=== PATIENT | female | born 1960 | race Caucasian/White ===

== ENCOUNTER 2021-01-03 14:35 | Outpatient (REF) | payer BC, SELFPAY ==
[2021-01-03 13:49] LABS: Hemoglobin A1C 8.1 % (<5.7)
[2021-01-03 14:05] LABS: Anion Gap 11.3 mmol/L (3-11); BUN 14 mg/dL (7-18); CO2 25.7 mmol/L (21.0-32.0); CREATININE 0.6 mg/dL (0.55-1.02); Calculated LDL 76 mg/dL (<100); Chloride 105 mmol/L (98-107); Cholesterol 160 mg/dL (<200); Glucose 156 mg/dL (74-106); HDL Cholesterol 46 mg/dL (40-60); Potassium 4.2 mmol/L (3.5-5.1); Sodium 142 mmol/L (136-145); Triglyceride 193 mg/dL (<150)
== END 2021-01-03 14:36 | disposition home or self-care (01) ==
LOC: LBN 14:35
PROVIDERS: PCP Nurse Practitioner Family; Visit Provider Nurse Practitioner Family
DX: E11.9 Type 2 diabetes mellitus without complications (principal)
CPT/HCPCS: 80048; 80061; 83036

== ENCOUNTER 2021-01-15 01:32 | Outpatient (CLI) | payer BC, SELFPAY ==
--- NOTE | 2021-01-15 08:15 | DI.RAD_ITS ---
EXAM: XR KNEE RT 3V AP,LAT,HEMRELINDA CLINICAL HISTORY: Bilateral knee pain,M19.90, OA. TECHNIQUE: 2D digital imaging was performed. COMPARISON: No exams were available for comparison FINDINGS: There is no evidence of fracture but there does appear to be a joint effusion. There is moderate narrowing of the medial compartment. Advanced degenerative changes in the patellof emoral compartment are noted including joint space narrowing and osteophytes on both sides of the ext ensor compartment. Lateral compartment exhibits normal height. No osseous lesions. IMPRESSION: DATA REPOSITORY: RADIATION DOSE DELIVERED:
--- NOTE | 2021-01-15 08:15 | DI.MAMMO_ITS ---
EXAM: MG MAMMO SCREENING CLINICAL HISTORY: screening,Z12.39. TECHNIQUE: Bilateral full field digital CC and MLO mammographic images were obtained with 3D tomosyn thesis and utilizing computer aided detection (CAD). COMPARISON: Prior mammograms dating back to 2011, the most recent being January 2016. FINDINGS: There are no new significant radiograph findings in left breast. In the right breast there is a noncalcified well-defined 4 x 3 millimeter nodule located 4 cm in from the nipple. This most probably benign and is unchanged from at least 2012. there is no significant architectural distortion nor skin thickening-retraction. IMPRESSION: Stable benign findings. No radiographic evidence of malignancy. BI-RADS Category 2 - Benign Findings Breast Density - Category B - Scattered areas of fibroglandular density Breast density Category C or D implies that the patient has dense breast tissue. Dense breast tissue can make it harder to find cancer on a mammogram. Dense breast tissue is also associated with an incr eased risk of breast cancer. This information about the result of the mammogram report was provided to the patient to raise their awareness. Use this report when you speak with the patient about their risks for breast cancer, which includes their family history. At that time, you may recommend additional screening tests (Ultrasoun d or MRI) as these tests may add significant information. A negative radiographic report should not delay biopsy if a dominant or clinically suspicious mass is present. Up to ten percent of cancers are not identified on mammography. A negative report may reinforce clinical impression. Adenosis and dense breasts may obscure an underlying neoplasm. False positive reports average 6 to 10%. Patient will receive a letter notifying them of these results.
--- NOTE | 2021-01-15 08:15 | DI.RAD_ITS ---
EXAM: XR KNEE LT 3V AP,LAT,HERMELINDA CLINICAL HISTORY: Bilateral knee pain,M19.90, OA. TECHNIQUE: 2D digital imaging was performed. COMPARISON: CR XR KNEE RT 3V AP,LAT,HERMELINDA from 01/15/2021 FINDINGS: There is no evidence of fracture. There is a small joint effusion. There is no joint space narrowin g on the standing view but there appears to be an intra-articular bony excrescence at the level of th e articular surface of the lateral femoral condyle, as seen on the AP view. This extends into the la teral compartment. There are no marginal osteophytes. Some degenerative changes also evident in the patellofemoral compartment. No ominous osseous lesions evident. IMPRESSION: DATA REPOSITORY: RADIATION DOSE DELIVERED:
== END 2021-01-15 01:33 ==
LOC: DI 01:33
PROVIDERS: PCP Nurse Practitioner Family; Visit Provider Nurse Practitioner Family
DX: Z12.31 Encounter for screening mammogram for malignant neoplasm of breast (principal); M25.561 Pain in right knee; M25.562 Pain in left knee; M25.461 Effusion, right knee; M25.462 Effusion, left knee
CPT/HCPCS: 73562; 77063; 77067

== ENCOUNTER 2021-03-04 02:57 | Outpatient (CLI) | payer BC, SELFPAY ==
[2021-03-05 12:27] LABS: COVID-19 RT-PCR UVMMC Result Negative (Negative)
== END 2021-03-04 02:58 | disposition home or self-care (01) ==
LOC: LBO 02:57
PROVIDERS: PCP Nurse Practitioner Family; Visit Provider Nurse Practitioner Family
DX: Z20.822 Contact with and (suspected) exposure to COVID-19 (principal)
CPT/HCPCS: U0003

== ENCOUNTER 2021-05-09 11:02 | Day surgery (SDC) | payer BC, SELFPAY ==
[2021-05-09 11:38] VITALS: BP 137/64; PULSE 66; RESP 16; TEMP 36.1; O2SAT 97
[2021-05-09] MEDS: Lactated Ringers 1,000 ML 80 ML IV (12:02)
--- NOTE | 2021-05-09 12:12 | W.ANESPRE ---
General Info Date of Service Date Performed: 05/09/21 Height: 5 ft 1.5 in Weight: 97.1 kg Body Mass Index (BMI): 39.7 Surgical Procedure: Operation Date: 05/09/21 11:20 Proposed Procedures Side Surgeon giovana Doss, DO Meds Allergies and Home Medications Allergies Allergy/AdvReac Type Severity Reaction Status Date / Time ibuprofen Allergy Intermediate swelling Unverified 05/09/21 11:44 aspirin Allergy Unknown swelling/SO Unverified 05/09/21 11:44 B codeine Allergy Unknown Itching Unverified 05/09/21 11:44 cheese Allergy Intermediate swelling Uncoded 05/09/21 11:44 wine Allergy Intermediate throat Uncoded 05/09/21 11:44 swells Environmental Allergy Mild Other (See Uncoded 05/09/21 11:44 Comment) Home Medication Medication Instructions Recorded albuterol sulfate 90 mcg/actuation 2 puff INHALATION Q6H PRN #18 g 01/20/21 aerosol inhaler cetirizine 10 mg tablet 10 mg PO DAILY #90 tab 01/20/21 citalopram 20 mg tablet 20 mg PO DAILY #90 tab 01/20/21 lovastatin 40 mg tablet 40 mg PO HS #90 tab 01/20/21 montelukast 10 mg tablet 10 mg PO DAILY #90 tab 01/20/21 pen needle, diabetic 32 gauge x #200 ea 01/23/21 empagliflozin 25 mg tablet 25 mg PO DAILY #90 tab 02/06/21 insulin degludec 100 unit/mL (3 24 unit SUBCUT QHS #15 ml 02/06/21 mL) subcutaneous pen naproxen 500 mg tablet 500 mg PO BID 04/02/21 metformin 1,000 mg tablet 1,000 mg PO BID #180 tab 04/14/21 bisacodyl 5 mg tablet,delayed 5 mg PO ONCE #4 tab 04/24/21 release polyethylene glycol 3350 17 238 g PO ONCE #238 g 04/24/21 gram/dose oral powder Current Visit Medications: Current Medications Generic Name Dose Route Start Last Admin Trade Name Freq PRN Reason Stop Dose Admin Hyoscyamine Sulfate 0.125 mg 05/09/21 09:04 Hyoscyamine 0.125 Mg Sl/Oral/Chew SL DIRECTED PRN Ringer's Solution 1,000 mls @ 80 mls/hr 05/09/21 06:00 05/09/21 12:02 IV 06/07/21 23:59 80 mls/hr INFUSION SHADE Administration IV Miscellaneous Supplies 1 each 05/09/21 06:00 Iv Access IV 06/07/21 23:59 DIRECTED SHADE Sodium Chloride 0 ml 05/09/21 06:00 Normal Saline Flush 10 Ml Syr IV 06/07/21 23:59 PRN PRN Sodium Chloride 0 ml 05/09/21 06:00 Normal Saline 10 Ml Vial IJ 06/07/21 23:59 DIRECTED PRN Sterile Water 0 ml 05/09/21 06:00 Water,Injection,Sterile 10 Ml Vial IJ 06/07/21 23:59 DIRECTED PRN PFSH Active Problems Active Problems: Problem Status Onset Code Screening for colon cancer Z12.11 Obstructive sleep apnea syndrome G47.33 Type 2 diabetes mellitus E11.9 Hyperlipidemia E78.5 Degenerative joint disease (DJD) of lumbar spine M47.816 Primary osteoarthritis of right knee M17.11 Sigmoid diverticulosis K57.30 Sensorineural hearing loss (SNHL) of both ears H90.3 Medical History Medical History Degenerative joint disease (DJD) of lumbar spine Hyperlipidemia Lipoma (08/08/13) Obstructive sleep apnea syndrome CPAP nightly Sensorineural hearing loss (SNHL) of both ears Sigmoid diverticulosis Type 2 diabetes mellitus Surgical History Surgical History History of bilateral tubal ligation History of section S/P cholecystectomy S/P nasal septoplasty Tobacco Smoking/Tobacco Use Status: Never Passive smoking exposure: Yes Second hand exposure: Yes Alcohol Alcohol Intake: current Alcohol intake frequency: a few times a month Alcohol type: wine and hard liquor Substance Use Substance use: Never Substance use type: does not use Prental History History 2 Para 2 Hx # Term Pregnancies Multiple births Hx # Pregnancies Ectopic pregnancies AB induced Hx Number of Living Children 2 AB spontaneous Vital Signs and Lab Results Vital Signs Most Recent Vital Signs in EMR: Most Recent Vital Signs Temp Pulse Resp BP Pulse Ox 36.1 C L 66 16 137/64 97 05/09/21 11:38 05/09/21 11:38 05/09/21 11:38 05/09/21 11:38 05/09/21 11:38 Point of Care Results Point of Care Results: Finger Stick Blood Glucose 98 05/09/21 12:00 Lab Results Blood Type / Crossmatch: No Data to Display Complete Blood Count: No Data to Display Complete Metabolic Panel: No Data to Display Liver Function Panel: No Data to Display Coagulation Panel: No Data to Display Cardiac Panel: No Data to Display Arterial Blood Gas: No Data to Display Venous Blood Gas: No Data to Display Pancreas Panel: No Data to Display Thyroid Panel: No Data to Display Infectious Disease: No Data to Display Blood Cultures: No Data to Display Toxicology Panel: No Data to Display Anesthesia Assessment and Plan Anesthesia History Personal History: No History of Anesthesia Complications Family History: No Family History of Anesthesia Complications Exercise Tolerance Exercise Tolerance: Metabolic Equivalents>4 Pertinent Negatives Pertinent Negatives: No Symptoms of GERD Cardiac & Pulmonary Exam Cardiac Exam: Normal S1/S2 Heart Sounds Pulmonary Exam: Clear Bilateral Breath Sounds Airway Exam Known Difficult Airway: No Mallampati Class: 2 Mouth Opening: Normal (> 3cm) Thyromental Distance: Less than 3 cm Neck Range of Motion: Full ROM Neck Circumference: Normal Teeth Condition: Removable Dentures/Plates Upper ASA Classification ASA Score: ASA 2 Emergency Case?: No NPO Status NPO Status: NPO Clears >2 hours, Solids >8 hours Anesthesia Plan Resuscitation Status: Full Code Anesthesia Technique: General Anesthesia Airway Planned: Natural Airway Monitors Used: Standard Monitors
[2021-05-09 12:17] VITALS: BMI 39.7
--- NOTE | 2021-05-09 13:50 | BOWEL_PTH ---
PATIENT: Eileen Simpson LOC: [facility] U#:[id number] AGE/SX: 61/F ROOM: RE05/09/[address]: Jaleesa Doss : 1960 BED: DIS: 05/09/2021 SPEC #: [id number] RECD: 05/09/21 17:32 STATUS: JENA RECristofer #: [id number] GEORGETTE: 05/09/21 13:[address]: Jaleesa Doss DEPT: Surgical Specimen RECD BY: Nicky Hicks ENTERED: 05/09/21 17:33 SP TYPE: Bowel OTHR DR: Vee Norman, BENJIE Tissues: 1 - BIOPSY BOWEL 2 - BIOPSY BOWEL Procedures: GROSS AND MICRO LEVEL 4 Comments: [id number]
--- NOTE | 2021-05-09 14:08 | W.COLOREPORT ---
Date of service: 05/09/21 Time of Service: 14:08 Colonoscopy Report Date of procedure: 05/09/21 Pre-op diagnosis general: screen Post-op diagnosis procedure note: other (diverticula ) Surgeon: Jaleesa Doss Anesthesia Type: General:No Airway Estimated blood loss (mL): 0 Pathology: other Complications: None Disposition: same day Prep: Miralax/Dulcolax Retraction Time: 9 Procedure Description: After informed consent was obtained the patient was taken to the procedure room and placed in a left decubitous position. Monitors were applied and a time out was done. The patients name, date of , procedure, allergies to medications and metal in their body was reviewed. The patient was then sedated. Once sedated and comfortable a rectal exam was done. External exam was normal. Internal exam revealed a normal sphincter tone and no palpable masses. The scope was then introduced and retrofelexed. no internal hemorrhoids were identified. The scope was then advanced to the cecum w/out difficulty. The TI and appendiceal orifice were identified. The prep was good. The scope was then slowly retracted over 9 minutes back into the rectum. There are no polyps or AVMs visualized today. She does have mild diverticula confined to the sigmoid colon. There is no signs of bleeding or infection. Biopsies taken at 90 cm and in the rectum-because of the problems she was having earlier this winter with diarrhea. The scope was removed and the patient was woken up and taken back to Same day surgery in stable condition. The patient tolerated the procedure well and there were no immediate complications. Follow up: The patient should follow up in 10 years unless they develop changes in bowel habits or other new gastrointestinal complaints.
--- NOTE | 2021-05-09 14:11 | PDOC.DSDIS_ITS ---
Discharge Plan Disposition Patient Disposition: HOME Condition: Good Discharge Details Reason For Visit: colon scope Attending Provider: Jaleesa Doss Primary Care Provider: Vee Norman Home Meds and New Rx's Prescriptions: Continued Tresiba FlexTouch U-100 100 unit/mL (3 mL) insulin pen 24 unit subcut QHS Qty: 15 RF: 4 Jardiance 25 mg tablet 25 mg PO DAILY Qty: 90 RF: 4 citalopram [Celexa] 20 mg tablet 20 mg PO DAILY Qty: 90 RF: 4 lovastatin 40 mg tablet 40 mg PO HS Qty: 90 RF: 4 montelukast [Singulair] 10 mg tablet 10 mg PO DAILY Qty: 90 RF: 4 cetirizine [Zyrtec] 10 mg tablet 10 mg PO DAILY Qty: 90 RF: 4 albuterol sulfate [Ventolin HFA] 90 mcg/actuation HFA aerosol inhaler 2 puff Inhalation Q6H PRN (Reason: shortness of breath or wheezing) Qty: 18 RF: 4 (DME) pen needle, diabetic [BD Ultra-Fine Margo Pen Needle] 32 gauge x 5/32 needle See Rx Instructions .ROUTE .MEDSUPPLY Qty: 200 RF: 4 naproxen 500 mg tablet 500 mg PO BID RF: 0 metformin 1,000 mg tablet 1,000 mg PO BID Qty: 180 RF: 4 Discontinued bisacodyl [Dulcolax (bisacodyl)] 5 mg tablet,delayed release (DR/EC) 5 mg PO ONCE Qty: 4 RF: 0 polyethylene glycol 3350 17 gram/dose powder 238 g PO ONCE Qty: 238 RF: 0 Discharge Instructions Additional Instructions: DSU Colonoscopy Post- Op Instructions Instructions for Everyone who is given Anesthesia: For your safety, please do the following for the next twenty-four (24) hours: *Do Not operate a motor vehicle (car, truck, motorcycle, etc.) *Do Not drink alcoholic beverages or use any recreational drugs for the first 24 hours or while taking pain medications. The medications in your body may have a reaction that can be dangerous. *Do Not make any important decisions or sign any important papers. Findings:diverticula- minor otherwise nromal I did do biopsy's today Follow up: Repeat colonoscopy in 10 years time, if you are still healthy for anesthesia. I did do routine biopsies of the colon. We will send a letter in 3 to 4 weeks time with the results of the biopsies. Otherwise the colon looked healthy and normal. 1. No lifting over 20 pounds or strenuous activity for the first 24 hours after your procedure. After 24 hours there are no restrictions on your activity but you may feel fatigued for a few days. 2. After you arrive home you may have a light meal and return to your normal diet as you can tolerate it without feeling sick to your stomach. 3. You may have a bloated, gaseous feeling in your belly (abdomen) after a colonoscopy. Passing gas and belching will help. Walking or lying down on your left side with your knees flexed may relieve the discomfort. Call the office at [phone] (Office) or [phone] (Hospital) right away if you notice any of the following: a.Vomiting of blood or ?coffee ground stools?. b.Rectal bleeding 1Tbsp, blood clots or continuous bleeding. c.Severe belly (abdominal) pain. d.A hard distended belly (abdomen) and an inability to pass gas. 4. Please don?t expect to have a normal BM (bowel movement) for 2-3 days after your procedure. 5. If there are questions regarding the findings of your procedure, please contact your doctor 6. If you are unable to contact your doctor with a problem, contact the hospital at [phone]. 7. Continue all your regular medications unless directed otherwise. I understand the above instructions and have no questions. Signature of Patient or Adult Escort Name of Responsible Adult Escort Signature of Nurse Date/Time Activity:: see above Diet:: see above Discharge Orders Discharge Orders: Discharge Order (Routine); Ordered 05/09/21 Ordered By: Jaleesa Doss DS: Diagnosis Discharge Diagnosis (1) Diverticula of colon: Status: Acute
--- NOTE | 2021-05-09 14:16 | W.ANESPOSTOP ---
Postoperative Evaluation Date, Time and Location Date Performed: 05/09/21 Time Performed: 14:16 Patient Location: Day Surgery Unit Vital Signs Most Recent Imported Vital Signs: Most Recent Vital Signs Temp Pulse Resp BP Pulse Ox 36.1 C L 66 16 137/64 97 05/09/21 11:38 05/09/21 11:38 05/09/21 11:38 05/09/21 11:38 05/09/21 11:38 Most Recent Manually Entered Vital Signs: Adult Blood Pressure: 87/37 Heart Rate: 60 Respirations: 16 Oxygen Saturation (%): 96 Temperature (C): 36.5 C Pain Score (0-10 Scale): 0 Pain Score Most Recent Pain Score: Most Recent Pain Score Pain Level 0 05/09/21 11:38 Assessment Mental Status: Awake (Alert & Oriented to Patient Baseline) Airway and Respiratory Function: Patent airway with normal (patient baseline) respiratory exam Cardiovascular Function: Hemodynamically Stable Hydration Status: Adequately Hydrated Nausea & Vomiting: No Nausea or Vomiting Pain: Pt. Denies Any Pain Peripheral Nerve Block: Patient did not receive a nerve block
[2021-05-09 14:17] VITALS: BP 87/37; PULSE 60; RESP 18; TEMP 36.5; O2SAT 96
[2021-05-09 14:18] VITALS: BP 87/37; PULSE 60; RESP 16; TEMPC 36.5; O2SAT 96
[2021-05-09 14:38] VITALS: BP 108/62; PULSE 75; RESP 16; TEMP 36.1; O2SAT 98
== END 2021-05-09 15:12 | disposition home or self-care (01) ==
PROVIDERS: PCP Nurse Practitioner Family; Visit Provider Surgery
PROC: 0DJD8ZZ Inspection of Lower Intestinal Tract, Via Natural or Artificial Opening Endoscopic (ICD-10-PCS; CPT 45378; principal; 2021-05-09 11:15)
DX: R19.7 Diarrhea, unspecified (principal); K57.30 Diverticulosis of large intestine without perforation or abscess without bleeding; G47.33 Obstructive sleep apnea (adult) (pediatric); E11.9 Type 2 diabetes mellitus without complications
CPT/HCPCS: 45380; 88305; J2001

== ENCOUNTER 2021-05-15 03:44 | Outpatient (CLI) | payer BC, SELFPAY ==
[2021-05-15 16:46] LABS: Anion Gap 13.2 mmol/L (3-11); BUN 16 mg/dL (7-18); CO2 23.8 mmol/L (21.0-32.0); CREATININE 0.7 mg/dL (0.55-1.02); Calcium 9.7 mg/dL (8.5-10.1); Chloride 107 mmol/L (98-107); Glucose 197 mg/dL (74-106); Potassium 3.9 mmol/L (3.5-5.1); Sodium 144 mmol/L (136-145)
== END 2021-05-15 03:45 | disposition home or self-care (01) ==
LOC: LBO 03:44
PROVIDERS: PCP Nurse Practitioner Family; Visit Provider Nurse Practitioner Family
DX: E11.9 Type 2 diabetes mellitus without complications (principal)
CPT/HCPCS: 36415; 80048

== ENCOUNTER 2021-09-01 01:30 | Outpatient (CLI) | payer BC, SELFPAY ==
[2021-09-01 11:00] LABS: Source Nasal/Nares
[2021-09-01 15:19] LABS: COVID-19 PCR Negative (Negative)
== END 2021-09-01 01:31 | disposition home or self-care (01) ==
LOC: LBO 01:30
PROVIDERS: PCP Nurse Practitioner Family; Visit Provider Student in an Organized Health Care Education/Training Program
DX: Z20.822 Contact with and (suspected) exposure to COVID-19 (principal); Z01.818 Encounter for other preprocedural examination
CPT/HCPCS: 87635

== ENCOUNTER 2021-09-03 11:50 | Day surgery (SDC) | payer BC, SELFPAY ==
[2021-09-03] VITALS (9 sets, daily range): BP systolic 93–121; BP diastolic 51–74; PULSE 54–66; RESP 7–18; TEMP 36.1–36.6; O2SAT 94–98; BMI 40.8
--- NOTE | 2021-09-03 07:40 | W.ANESPRE ---
General Info Date of Service Date Performed: 09/03/21 Height: 5 ft 1.5 in Weight: 99.79 kg Body Mass Index (BMI): 40.8 Surgical Procedure: Operation Date: 09/03/21 13:55 Proposed Procedures Side Surgeon p Knee Arthroscopy (R) w/partial medial meniscectomy Right Mitch Pak MD Meds Allergies and Home Medications Allergies Allergy/AdvReac Type Severity Reaction Status Date / Time ibuprofen Allergy Intermediate swelling Unverified 09/03/21 12:15 aspirin Allergy Unknown swelling/SO Unverified 09/03/21 12:15 B codeine Allergy Unknown Itching Unverified 09/03/21 12:15 cheese Allergy Intermediate swelling Uncoded 09/03/21 12:15 wine Allergy Intermediate throat Uncoded 09/03/21 12:15 swells Environmental Allergy Mild Other (See Uncoded 09/03/21 12:15 Comment) Home Medication Medication Instructions Recorded albuterol sulfate 90 mcg/actuation 2 puff INHALATION Q6H PRN #18 g 01/20/21 aerosol inhaler cetirizine 10 mg tablet 10 mg PO DAILY #90 tab 01/20/21 citalopram 20 mg tablet 20 mg PO DAILY #90 tab 01/20/21 lovastatin 40 mg tablet 40 mg PO HS #90 tab 01/20/21 montelukast 10 mg tablet 10 mg PO DAILY #90 tab 01/20/21 pen needle, diabetic 32 gauge x #200 ea 01/23/21 empagliflozin 25 mg tablet 25 mg PO DAILY #90 tab 02/06/21 naproxen 500 mg tablet 500 mg PO BID 04/02/21 metformin 1,000 mg tablet 1,000 mg PO BID #180 tab 04/14/21 insulin degludec 100 unit/mL (3 22 unit SUBCUT QHS #15 ml 05/16/21 mL) subcutaneous pen acetaminophen 1,000 mg PO Q8H PRN PRN #90 cap 09/03/21 hydrocodone-acetaminophen 1 tab PO Q6H PRN #6 tab 09/03/21 Current Visit Medications: Current Medications Generic Name Dose Route Start Last Admin Trade Name Freq PRN Reason Stop Dose Admin Acetaminophen 1,000 mg 09/03/21 06:00 Acetaminophen 500 Mg Tab PO PREOP SHADE Ringer's Solution 1,000 mls @ 80 mls/hr 09/03/21 06:00 IV 09/21/21 23:59 INFUSION SHADE Cefazolin Sodium/Dextrose 2 gm in 50 mls @ 100 mls/hr 09/03/21 06:00 Ancef Duplex IVPB 09/21/21 23:59 PREOP SHADE IV Miscellaneous Supplies 1 each 09/03/21 06:00 Iv Access IV 09/21/21 23:59 DIRECTED SHADE Sodium Chloride 0 ml 09/03/21 06:00 Normal Saline Flush 10 Ml Syr IV 09/21/21 23:59 PRN PRN Sodium Chloride 0 ml 09/03/21 06:00 Normal Saline 10 Ml Vial IJ 09/21/21 23:59 DIRECTED PRN Sterile Water 0 ml 09/03/21 06:00 Water,Injection,Sterile 10 Ml Vial IJ 09/21/21 23:59 DIRECTED PRN PFSH Active Problems Active Problems: Problem Status Onset Code Tear of medial meniscus of right knee S83.241A Normal colonoscopy ~04/2021 Internal derangement of right knee M23.91 Diverticula of colon K57.30 Obstructive sleep apnea syndrome G47.33 Type 2 diabetes mellitus E11.9 Hyperlipidemia E78.5 Degenerative joint disease (DJD) of lumbar spine M47.816 Primary osteoarthritis of right knee M17.11 Sigmoid diverticulosis K57.30 Sensorineural hearing loss (SNHL) of both ears H90.3 Medical History Medical History (Updated 09/03/21 @ 12:45 by ANITRA Matthews) Degenerative joint disease (DJD) of lumbar spine Hyperlipidemia Lipoma (08/08/13) Obstructive sleep apnea syndrome CPAP nightly Sensorineural hearing loss (SNHL) of both ears Sigmoid diverticulosis Type 2 diabetes mellitus Surgical History Surgical History (Updated 09/03/21 @ 12:45 by ANITRA Matthews) History of bilateral tubal ligation History of section History of colonoscopy (~05/09/21) S/P cholecystectomy S/P nasal septoplasty Tear of medial meniscus of right knee S/P R knee arthroscopy: 09/03/2021 Tobacco Smoking/Tobacco Use Status: Never Passive smoking exposure: Yes Second hand exposure: Yes Alcohol Alcohol Intake: current Alcohol intake frequency: a few times a month Alcohol type: wine and hard liquor Substance Use Substance use: Never Substance use type: does not use Prental History History 2 Para 2 Hx # Term Pregnancies Multiple births Hx # Pregnancies Ectopic pregnancies AB induced Hx Number of Living Children 2 AB spontaneous Vital Signs and Lab Results Point of Care Results Point of Care Results: Finger Stick Blood Glucose 104 09/03/21 12:04 Lab Results Blood Type / Crossmatch: No Data to Display Complete Blood Count: No Data to Display Complete Metabolic Panel: No Data to Display Liver Function Panel: No Data to Display Coagulation Panel: No Data to Display Cardiac Panel: No Data to Display Arterial Blood Gas: No Data to Display Venous Blood Gas: No Data to Display Pancreas Panel: No Data to Display Thyroid Panel: No Data to Display Infectious Disease: Coronavirus (COVID-19)(PCR) Negative (Negative) 09/01/21 08:38 09/01/21 Coronavirus 2019 Source Nasal/Nares 09/01/21 08:38 09/01/21 Blood Cultures: No Data to Display Toxicology Panel: No Data to Display Anesthesia Assessment and Plan Anesthesia History Personal History: No History of Anesthesia Complications Family History: No Family History of Anesthesia Complications Exercise Tolerance Exercise Tolerance: Metabolic Equivalents>4 Pertinent Negatives Pertinent Negatives: No Symptoms of GERD, No Major Cardiovascular Symptoms or Complaints, No Major Pulmonary Symptoms or Complaints and No History of CVA/TIA Cardiac & Pulmonary Exam Cardiac Exam: Normal S1/S2 Heart Sounds Pulmonary Exam: Clear Bilateral Breath Sounds Airway Exam Known Difficult Airway: No Mallampati Class: 2 Mouth Opening: Normal (> 3cm) Thyromental Distance: Less than 3 cm Neck Range of Motion: Full ROM Neck Circumference: Normal Teeth Condition: Removable Dentures/Plates Upper ASA Classification ASA Score: ASA 3 Emergency Case?: No NPO Status NPO Status: NPO Clears >2 hours, Solids >8 hours Anesthesia Plan Resuscitation Status: Full Code Anesthesia Technique: General Anesthesia Airway Planned: LMA Monitors Used: Standard Monitors Preoperative Comments:: 61 yo female for knee arthroscopy. Sig PMHx: BMI 40, JIMENEZ/CPAP, DM2 (degludec/metformin/jardiance last a1c 7.7 03/2021), asthma (singulair/albuterol).
[2021-09-03] MEDS: Acetaminophen 500 MG TAB 1000 MG PO (12:36)
--- NOTE | 2021-09-03 12:44 | W.PM.DSUDISC ---
Discharge Plan Disposition Patient Disposition: HOME Condition: Good Discharge Details Reason For Visit: R knee arthroscopy Attending Provider: Mitch Pak Primary Care Provider: Vee Norman Home Meds and New Rx's Prescriptions: New hydrocodone-acetaminophen 5-325 mg tablet 1 tab PO Q6H PRN (Reason: pain) Qty: 6 RF: 0 acetaminophen 500 mg capsule 1,000 mg PO Q8H PRN PRNQty: 90 RF: 0 Continued Jardiance 25 mg tablet 25 mg PO DAILY Qty: 90 RF: 4 Tresiba FlexTouch U-100 100 unit/mL (3 mL) insulin pen 22 unit subcut QHS Qty: 15 RF: 4 citalopram [Celexa] 20 mg tablet 20 mg PO DAILY Qty: 90 RF: 4 lovastatin 40 mg tablet 40 mg PO HS Qty: 90 RF: 4 montelukast [Singulair] 10 mg tablet 10 mg PO DAILY Qty: 90 RF: 4 cetirizine [Zyrtec] 10 mg tablet 10 mg PO DAILY Qty: 90 RF: 4 albuterol sulfate [Ventolin HFA] 90 mcg/actuation HFA aerosol inhaler 2 puff Inhalation Q6H PRN (Reason: shortness of breath or wheezing) Qty: 18 RF: 4 (DME) pen needle, diabetic [BD Ultra-Fine Margo Pen Needle] 32 gauge x 5/32 needle See Rx Instructions .ROUTE .MEDSUPPLY Qty: 200 RF: 4 naproxen 500 mg tablet 500 mg PO BID RF: 0 metformin 1,000 mg tablet 1,000 mg PO BID Qty: 180 RF: 4 Discontinued acetaminophen [Tylenol Ex Str Arthritis Pain] 500 mg Tablet 1,000 mg PO Q6H PRNRF: 0 Discharge Instructions Stand Alone Forms: [facility] Knee Arthroscopy Referrals: Mitch Pak MD [ [facility] STAFF PHYSICIAN] - Equipment/Supplies: Partial Weight Bearing Crutches Activity:: Activity as Tolerated Remove Dressings/Wound Care:: 72 hours Shower/Bathe:: 72 hours Diet:: As Tolerated Discharge Orders Discharge Orders: Discharge Order (Routine); Ordered 09/03/21 Ordered By: Charlie Nieves DS: Diagnosis Discharge Diagnosis (1) Tear of medial meniscus of right knee: Status: Acute
[2021-09-03] MEDS: Lactated Ringers 1,000 ML 80 ML IV (13:02)
[2021-09-03] MEDS: ceFAZolin 2 GM/50 ML BAG IVPB (13:55)
[2021-09-03] MEDS: Bupivacaine 0.5% Pres-Free 30 ML VIAL (14:15)
[2021-09-03] MEDS: fentaNYL 100 MCG/2 ML VIAL IVP ×3 (14:41→15:03)
--- NOTE | 2021-09-03 16:07 | W.ANESPOSTOP ---
Postoperative Evaluation Date, Time and Location Date Performed: 09/03/21 Time Performed: 16:07 Patient Location: Day Surgery Unit Vital Signs Most Recent Imported Vital Signs: Most Recent Vital Signs Temp Pulse Resp BP Pulse Ox 36.1 C L 61 16 96/60 L 96 09/03/21 15:56 09/03/21 15:56 09/03/21 15:56 09/03/21 15:56 09/03/21 15:56 Pain Score Most Recent Pain Score: Most Recent Pain Score Pain Level 2 09/03/21 15:56 Assessment Mental Status: Awake (Alert & Oriented to Patient Baseline) Airway and Respiratory Function: Patent airway with normal (patient baseline) respiratory exam Cardiovascular Function: Hemodynamically Stable Hydration Status: Adequately Hydrated Nausea & Vomiting: No Nausea or Vomiting Pain: Pain is tolerable per patient Peripheral Nerve Block: Regional nerve block not resolved at time of post operative discharge
--- NOTE | 2021-09-04 07:57 | ROE_ITS ---
Date of service: 09/03/21 Time of Service: 14:43 Operative Note Operative Note DATE OF PROCEDURE: 09/03/21 PRE-OP DIAGNOSIS: Right Medial Meniscus Tear POST-OP DIAGNOSIS: same Right Medial Femur and Tibia Chondromalacia, Medial and Lateral Osteophytes PROCEDURE: Right arthroscopic partial medial meniscectomy, removal of impinging osteophyte posteriorly in the medial compartment SURGEON: Mitch Pak ANESTHESIA TYPE: General LMA/ETT Refer to Anesthesia Record ESTIMATED BLOOD LOSS: 0 PATHOLOGY: none sent TOURNIQUET TIME: 0 COMPLICATIONS: None Patient was transported to: PACU Patient's condition: stable Indications: I have seen Eileen in clinic for symptoms of a meniscus tear with chondromalacia. This was confirmed based on MRI and exam findings. Nonoperative measures were exhausted but disability and pain persisted. I discussed knee arthroscopy with meniscal intervention with the patient. I reviewed the risks of the procedure to include, but not limited to, bleeding, infection, pain, stiffness, damage to nerves or vessels, recurrence, blood clot. Despite these risks, the patient elected to proceed. Findings: A diagnostic arthroscopy was performed with the following findings: Suprapatellar Pouch: Mild inflammatory changes, No loose bodies Medial Compartment: Complex medial meniscal tear with involvement of the root and a large radial tear just medial to the root with an impinging osteophyte in this defect, focal grade IV chondromalacia of the central tibia, grade III chondromalacia over the posterior aspect of the tibia, diffuse grade II/III chondromalacia of the medial femur, No loose bodies Notch: ACL and PCL were intact Lateral Compartment: No meniscal tear, Intact meniscal root, No significant chondromalacia or signs of arthritis, No loose bodies Patellofemoral Compartment: Grade I chondromalacia of the patella and grade II chondromalacia of the trochlea, No apparent patellar maltracking Procedure Description: Eileen was greeted in the preoperative holding area where the correct side was identified and marked. The consent was reviewed with the patient and signed. The history and physical was updated. All questions were answered. Eileen was taken back to the operating room. The patient was placed into the supine position on the operating room table. A nonsterile tourniquet was placed high onto the leg but not used. All bony prominences were well padded. Prophylactic antibiotics in the form of cefazolin were administered. The right leg was then prepped with Chloraprep and draped in a standard fashion with stockinette and extremity drape. A timeout to confirm correct identity, side and site, procedure, allergies, anesthesia, and medical concerns was performed. The leg was placed into a pneumatic leg cheney, [id number]. A standard lateral portal was made at the lateral border of the patella tendon in line with the inferior pole of the patella, soft spot. The skin and deep tissue was incised sharply and the blunt trochar was inserted atraumatically. A diagnostic arthroscopy was performed and the findings are listed above. The suprapatellar pouch had mild inflammatory change. The patellofemoral articulation showed some grade I chondromalacia of the patella and grade II chondromalacia of the trochlea as well as no maltracking. The lateral gutter had no loose bodies but there was a peripheral osteophyte and the medial gutter had no loose bodies but once again peripheral osteophyte present. The knee was brought into some valgus stress in extension to open the medial compartment. A medial portal was made, localized by a spinal needle. The portal was created with an #11 blade through skin and capsule under direct visualization avoiding any meniscal injury. A probe was then inserted into the medial compartment. The medial compartment was fully inspected. The chondral surface of the tibia showed a small area of focal grade IV chondromalacia in the central portion of the tibia a few millimeters in diameter and the surface of the femur showed slightly more diffuse grade III chondromalacia. The medial meniscus had a complex tear with a radial component just medial to the posterior root disconnecting the remainder of the medial meniscus from the root attack. There was complex tearing through the lateral edge of this tear component with both horizontal and vertical components. Additionally, there was a prominent osteophyte at this level of the posterior medial meniscus in the gap of the meniscus which seem to be impinging with flexion. After evaluation, the meniscus was debrided down to a stable base u sing a series of biters and arthroscopic jamey. It was probed afterwards to confirm that the tear had been removed and the meniscus was stable. I also used the arthroscopic biters to remove the osteophyte from the posterior rim of the medial tibial plateau. The notch was then inspected which showed an intact ACL and an intact PCL. The leg was then brought into a figure of 4 position. The lateral compartment was fully inspected with the arthroscope and a probe. The chondral surface of the lateral femur showed no significant chondromalacia. The chondral surface of the lateral tibia showed no significant chondromalacia. The lateral meniscus had no meniscal tear. The arthroscope was brought back into the suprapatellar pouch and the leg was in full extension. The knee was thoroughly irrigated with the arthroscopic fluid on high flow and pressure. Inflow was stopped and excess fluid was removed. The wounds were closed with 4-0 Nylon. They were dressed with Xeroform, 4x4 gauze, ABD pad, Kerlix and an SARMAD wrap. A cryo-cuff was applied. The patient tolerated the procedure well and was returned to the Same Day Surgery area in a stable condition suffering no known complication.
== END 2021-09-03 16:44 | disposition home or self-care (01) ==
PROVIDERS: PCP Nurse Practitioner Family; Visit Provider Student in an Organized Health Care Education/Training Program
PROC: (CPT 29870; principal; 2021-09-03 13:45)
DX: M23.303 Other meniscus derangements, unspecified medial meniscus, right knee (principal); M94.261 Chondromalacia, right knee; M25.761 Osteophyte, right knee; G47.33 Obstructive sleep apnea (adult) (pediatric); E11.9 Type 2 diabetes mellitus without complications
CPT/HCPCS: 29881; J0690; J1100; J2001; J2405; J2704; J3010

== ENCOUNTER 2021-09-23 02:20 | Outpatient (CLI) | payer BC, SELFPAY ==
[2021-09-23 09:08] LABS: Hemoglobin A1C 6.9 % (<5.7)
[2021-09-23 09:31] LABS: COMMENT (LAB VIEW ONLY) 85.18 mg/dL; Microalb ug/mg Crea 9.7 ug/mg Cr
[2021-09-23 09:57] LABS: Anion Gap 10.4 mmol/L (3-11); BUN 14 mg/dL (7-18); CO2 26.6 mmol/L (21.0-32.0); CREATININE 0.6 mg/dL (0.55-1.02); Calcium 9.4 mg/dL (8.5-10.1); Chloride 105 mmol/L (98-107); Glucose 124 mg/dL (74-106); Potassium 4.2 mmol/L (3.5-5.1); Sodium 142 mmol/L (136-145)
== END 2021-09-23 02:21 | disposition home or self-care (01) ==
LOC: LBO 02:20
PROVIDERS: PCP Nurse Practitioner Family; Visit Provider Family Medicine
DX: E11.9 Type 2 diabetes mellitus without complications (principal)
CPT/HCPCS: 36415; 80048; 82043; 82570; 83036

== ENCOUNTER 2022-01-05 00:33 | Outpatient (CLI) | payer BC, SELFPAY ==
--- NOTE | 2022-01-05 06:30 | DI.MRI_ITS ---
Exam(s) MR LUMBAR SPINE WO EXAM: MR LUMBAR SPINE WO CLINICAL HISTORY: low back pain with radiculopathy to LLE,m54.16. TECHNIQUE: Multiplanar multisequence MRI of the Lumbar spine was performed. COMPARISON: There are no plain films of the lumbar spine available time this MRI interpretation FINDINGS: Five lumbar vertebrae are presumed. Conus medullaris is at lower L1 level. There is no evidence of conus mass nor subjacent clumping of intrathecal nerve roots to suggest arachnoiditis. The distal thecal sac is at L5-S1 level. No evide nce of Tarlov intra sacral CIS nor other significant findings within the sacral canal. Bones:There are no fractures nor ominous osseous lesions in the lumbar vertebral bodies and visualize d sacrum. With respect to the individual levels... T12-L1: Unremarkable L1-2: Normal disc height and signal. No disc herniation nor central canal stenosis.No foraminal steno sis L2-3: Normal disc height. No disc herniation nor central canal stenosis.No foraminal stenosis.No face t arthropathy. L3-4: Normal disc height. There is some annular bulging posteriorly which results in mild central sp inal canal stenosis. No evidence of significant foraminal stenosis. Mild degenerative changes in th e facet joints. L4-5: Normal disc height. There is mild anterolisthesis of L4 upon L5 due to severe facet arthropath y. Although there is no disc herniation at this level there is moderate-severe central spinal canal stenosis due to the listhesis. There is no significant foraminal stenosis evident at this level, thi s related to the fact that there is preserved disc height at this level. L5-S1: This level exhibits mild disc height loss. No listhesis. There is diffuse annular bulging ev ident at this level. There is a posterolateral left disc herniation which extends posteriorly 7 mill imeters, is approximately 8 millimeters wide, and descends for distance of approximately 12 millimete rs behind the left side of the S1 vertebral body. Contacts the exiting nerve root at this level. Th ere is mild central spinal canal stenosis at this level. There is significant narrowing of the exiti ng left neural foramen at this level due to more advanced disc height loss on the left side of this d isc space as well asdegenerative change in the facet joints. No foraminal stenosis on the right side at this level. Facet joint arthropathy is more severe on the left side at this level Soft tissues: paraspinal soft tissues appear unremarkable. IMPRESSION: 1. Findings at the lower 3 levels as described above. There is moderate-severe central canal stenosi s at L4-5 level related to degenerative anterolisthesis of L4 upon L5. No significant foraminal sten osis evident at this level. 2. L5-S1 slightly left of center disc herniation descends for distance of 12 millimeters behind the l eft side of S1. Also severe left-sided foraminal stenosis at this level. No right-sided foraminal s tenosis at this level. 3. Other individual findings as described individually above. DATA REPOSITORY:
== END 2022-01-05 00:53 ==
PROVIDERS: PCP Nurse Practitioner Family; Visit Provider Nurse Practitioner Family
DX: M54.16 Radiculopathy, lumbar region (principal); M51.17 Intervertebral disc disorders with radiculopathy, lumbosacral region; M47.27 Other spondylosis with radiculopathy, lumbosacral region; M79.605 Pain in left leg
CPT/HCPCS: 72148

== ENCOUNTER 2022-02-12 08:47 | Outpatient (CLI) | payer BC, SELFPAY ==
--- NOTE | 2022-02-12 09:00 | RT.EKG_ITS ---
APPROVED REPORT Exam: Resting ECG Reason for Exam: pre op evaluation Patient Location: O HR:69 bpm ECG Measurements Heart Rate 69 AXIS ME 164 P 76 QRSd 90 QRS -54 QT 391 T 43 QTc 419 Conclusion Sinus rhythm...normal P axis, V-rate 60- 99 Left anterior fascicular block...axis(240,-40), init forces inf Poor R wave progression
== END 2022-02-12 08:48 | disposition home or self-care (01) ==
PROVIDERS: PCP Nurse Practitioner Family; Visit Provider Nurse Practitioner Family
DX: Z01.818 Encounter for other preprocedural examination (principal); M54.16 Radiculopathy, lumbar region
CPT/HCPCS: 93010

== ENCOUNTER 2022-02-18 02:10 | Outpatient (CLI) | payer BC, SELFPAY ==
--- NOTE | 2022-02-18 07:45 | DI.MAMMO_ITS ---
Exam(s) MAMMO SCREENING EXAM: MAMMO SCREENING CLINICAL HISTORY: screening Z12.39 FOR BREAST CANCER TECHNIQUE: Mammograms were interpreted according to the usual protocol including computer analysis w [employer] CAD system, tomosynthesis and C-view imaging. COMPARISON: FINDINGS: The breasts are of moderate density with fairly symmetrical distribution of fibroglandular tissue. N o dominant mass or clumped microcalcification is identified in either breast. The current examinatio n is compared with previous examinations including December 2020 and there has been no gross interval change in appearance in comparison with the prior studies. IMPRESSION: No specific evidence of malignancy at this time. Routine screening examinations are suggested at yea rly intervals in this age group according to the ACS ACR guidelines. BI-RADS Category 1 - Negative Breast Density - Category B - Scattered areas of fibroglandular density
== END 2022-02-18 02:30 ==
PROVIDERS: PCP Nurse Practitioner Family; Visit Provider Nurse Practitioner Family
DX: Z12.31 Encounter for screening mammogram for malignant neoplasm of breast (principal)
CPT/HCPCS: 77063; 77067

== ENCOUNTER 2022-02-20 02:27 | Outpatient (CLI) | payer BC, SELFPAY ==
[2022-02-20 10:32] LABS: Abs Immature Grans 0.01 10^3/uL (0.0-0.06); Absolute Basophil Count 0.04 10^3/uL (0.0-0.2); Absolute Eosinophil Count 0.09 10^3/uL (0.0-0.7); Absolute Lymphocyte Count 1.97 10^3/uL (1.2-3.4); Absolute Monocyte Count 0.33 10^3/uL (0.1-0.8); Absolute Neutrophil Count 2.28 10^3/uL (1.2-6.7); Basophils % 0.8; Eosinophils % 1.9; HCT 42.7 % (36.0-46.0); HGB 14.1 g/dL (11.2-15.7); Immature Grans % 0.2; Lymphocytes % 41.7; MCH 31.6 pg (27.0-33.0); MCV 95.7 fL (80-95); Neutrophils % 48.4; Nucleated RBC 0 %; Platelet Count 281 10^3/uL (130-400); RBC 4.46 10^6/uL (3.93-5.22); RDW-SD 42.5 fL; WBC 4.72 10^3/uL (4.4-10.8)
[2022-02-20 10:53] LABS: Hemoglobin A1C 6.5 % (<5.7)
[2022-02-20 11:09] LABS: ALT 23 U/L (14-59); AST 6 U/L (15-37); Albumin 4.1 g/dL (3.4-5.0); Alkaline Phosphatase 61 U/L (46-116); Anion Gap 14.4 mmol/L (3-11); BUN 15 mg/dL (7-18); Bilirubin, Total 0.8 mg/dL (0.2-1.0); CO2 22.6 mmol/L (21.0-32.0); CREATININE 0.7 mg/dL (0.55-1.02); Calcium 9.5 mg/dL (8.5-10.1); Chloride 106 mmol/L (98-107); Glucose 121 mg/dL (74-106); Potassium 4.2 mmol/L (3.5-5.1); Sodium 143 mmol/L (136-145); Total Protein 7.2 g/dL (6.4-8.2)
== END 2022-02-20 02:28 | disposition home or self-care (01) ==
PROVIDERS: PCP Nurse Practitioner Family; Visit Provider Nurse Practitioner Family
DX: M54.16 Radiculopathy, lumbar region (principal); Z01.818 Encounter for other preprocedural examination
CPT/HCPCS: 36415; 80053; 83036; 85025

== ENCOUNTER 2022-08-26 08:56 | Outpatient (CLI) | payer BC, SELFPAY ==
[2022-08-26 09:05] VITALS: BP 129/79; PULSE 77; RESP 20; TEMP 36.6; O2SAT 96
[2022-08-26] MEDS: Omnipaque 240 MG/ML 50 ML BTL IJ (09:44)
[2022-08-26] MEDS: methylPREDNISolone ACETATE 80 MG/ML VIAL IJ (09:45)
[2022-08-26 09:47] VITALS: BP 116/71; PULSE 76; RESP 22; O2SAT 98
--- NOTE | 2022-08-26 09:49 | PDOC.PAIN_ITS ---
Pain Clinic Procedure Note Procedure Note Procedure Note: CAUDAL EPIDURAL STEROID WITH CATHETER INJECTION PROCEDURE NOTE COMMENTS: She was seen by [facility] and this procedure was recommended. He has had disc surgery to her lumbar spine, thus the reason for the caudal approach. Her pre-procedure pain VAS to the low back and left leg was 4/10. D: Lumbosacral radiculopathy Eileen Simpson has been referred to the [facility] Management [facility] for lumbar e pidural steroid injection. Patient was greeted by the nurse who verified the patient?s name and .? Patient was then taken to the fluoroscopy suite. The patient was interviewed and the medical record was reviewed.? There were no medical, pharmacologic, radiographic, or other structural contraindications to attempting fluoroscopically guided caudal epidural steroid injection. Risks and expected side effects as well as potential benefits of the procedure were reviewed and voiced concerns addressed.? The patient consent form was signed.? Standard time-out procedure was performed. The patient was placed in the prone position on the fluoroscopy table and automated blood pressure cuff, pulse oximeter, and 3 lead EKG was applied.? The skin entry point for entering/approaching the sacral hiatus was marked.? Following thorough chlorhexadine preparation of the skin and draping and 1% lidocaine infiltration of the skin entry point and subcutaneous tissues, a 17 gauge Touhy needle was placed under fluoroscopic guidance through the sacral hiatus.? Needle tip placement and depth were aided and confirmed by fluoroscopy. There was no paresthesia or return of blood or CSF through the needle. A 19G Arrow spinal catheter was threaded to the L5 height and 1 cc's of Omnipaque 240 was injected with clear epidural spread confirmed with fluoroscopy.? Aspiration was performed with no resulting blood or clear fluid. One cc of depomedrol (80 mg/cc) was injected.? This was followed by 2 cc of 1% Lidocaine to flush the catheter.?There was not any unusual discomfort expressed.? The needle and cath eter were removed together without difficulty. Vital signs were stable throughout the procedure and were as recorded in nursing records.? Follow up plans and appointments were discussed.? Post procedure instruction was given as documented in nursing records and having met discharge criteria and was discharged from the Pain Management Center. Post-procedure pain VAS was 2/10. This procedure can be completed up to 3 times per 12 months if it is helpful. Gil Knight DO, MPH ABPMR-Pain Management [facility]
--- NOTE | 2022-08-26 10:09 | DI.RAD_ITS ---
Exam(s) XR PAIN CLINIC LUMBAR SP 2V EXAM: XR PAIN CLINIC LUMBAR SP 2V CLINICAL HISTORY: Dx: Lumbar Radiculopathy. TECHNIQUE: Fluoroscopy was provided for the referring physician for guidance with performing pain cl inic injection procedure. COMPARISON: No exams were available for comparison FINDINGS: Please see procedure note for details. Fluoro time: 34.6 seconds RADIATION DOSE DELIVERED: Ka,r=25.32 mGy
== END 2022-08-26 08:57 | disposition home or self-care (01) ==
LOC: PC 08:56
PROVIDERS: PCP Nurse Practitioner Family; Visit Provider Preventive Medicine Occupational Medicine
DX: M54.17 Radiculopathy, lumbosacral region (principal)
CPT/HCPCS: 62323; 72100; J1040; Q9967

== ENCOUNTER 2022-10-23 22:34 | Outpatient (REF) | payer BC, SELFPAY ==
[2022-10-26 12:28] LABS: Chlamydia Result Negative (Negative); GC Result Negative (Negative)
== END 2022-10-23 22:35 | disposition home or self-care (01) ==
LOC: LBN 22:34
PROVIDERS: PCP Nurse Practitioner Family; Visit Provider Physician Assistant
DX: N76.0 Acute vaginitis (principal); R10.2 Pelvic and perineal pain; E11.9 Type 2 diabetes mellitus without complications
CPT/HCPCS: 87491; 87591; 87086; 87480; 87510; 87660

== ENCOUNTER 2023-01-19 07:49 | Outpatient (CLI) | payer BC, SELFPAY ==
[2023-01-19 08:04] VITALS: BP 142/79; PULSE 78; RESP 20; TEMP 36.5; O2SAT 96
--- NOTE | 2023-01-19 08:35 | DI.RAD_ITS ---
Exam(s) XR PAIN CLINIC LUMBAR SP 2V EXAM: XR PAIN CLINIC LUMBAR SP 2V CLINICAL HISTORY: Dx: Lumbar Radiculpathy TECHNIQUE: 2D and realtime digital imaging was performed. Radiologist not present. CONTRAST MATERIAL: None. COMPARISON: No exams were available for comparison FINDINGS: Fluoroscopy was provided for pain management therapy. Please refer to procedure report or details. Radiation Exposure Index: Ka,r=21.38 mGy IMPRESSION: As above. RADIATION DOSE DELIVERED:
[2023-01-19 08:44] VITALS: BP 157/80; PULSE 78; RESP 16; O2SAT 98
[2023-01-19] MEDS: methylPREDNISolone ACETATE 80 MG/ML VIAL IJ (08:45)
[2023-01-19] MEDS: Omnipaque 240 MG/ML 50 ML BTL IJ (08:46)
--- NOTE | 2023-01-19 08:46 | PDOC.PAIN_ITS ---
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 Her Hem A1c has been in a good range and stable. Pre-procedure pain VAS was 6/10. Dx: Lumbosacral radiculopathy. Eileen Simspon has been referred to the Pain Management Center for lumbar epidural steroid injection. Patient was greeted by the nurse who verified the patient?s name and .? Michael pink was then taken to the fluoroscopy suite. The patient was interviewed and the medical record was reviewed.? There were no medical, pharmacologic, radiographic, or other structural contraindications to attempting fluoroscopically guided caudal epidural steroid injection. Risks and expected side effects as well as potential benefits of the procedure were reviewed and voiced concerns addressed.? The patient consent form was signed.? Standard time-out procedure was performed. The patient was placed in the prone position on the fluoroscopy table and automated blood pressure cuff, pulse oximeter, and 3 lead EKG was applied.? The skin entry point for entering/approaching the sacral hiatus was marked.? Following thorough chlorhexadine preparation of the skin and draping and 1% lidocaine infiltration of the skin entry point and subcutaneous tissues, a 17 gauge Touhy needle was placed under fluoroscopic guidance through the sacral hiatus.? Needle tip placement and depth were aided and confirmed by fluoroscopy. There was no paresthesia or return of blood or CSF through the needle. A 19G Arrow spinal catheter was threaded to the L5-S1 height and 1 cc's of Omnipaque 240 was injected with clear epidural spread confirmed with fluoroscopy.? Aspiration was performed with no resulting blood or clear fluid. One cc of depomedrol (80 mg/cc) was injected.? This was followed by 2 cc of 1% Lidocaine to flush the catheter.?There was not any unusual discomfort expressed.? The needle and catheter were removed together without difficulty. Vital signs were stable throughout the procedure and were as recorded in nursing records.? Follow up plans and appointments were discussed.? Post procedure instruction was given as documented in nursing records and having met discharge criteria and was discharged from the Pain Management Center. Post-procedure pain VAS was 1/10. Gil Knight DO, MPH ABPMR-Pain Management [facility]
== END 2023-01-19 07:50 | disposition home or self-care (01) ==
LOC: PC 07:49
PROVIDERS: PCP Nurse Practitioner Family; Visit Provider Preventive Medicine Occupational Medicine
DX: M54.17 Radiculopathy, lumbosacral region (principal)
CPT/HCPCS: 62323; 72100; J1040; Q9967

== ENCOUNTER 2023-02-19 14:11 | Outpatient (REF) | payer BC, SELFPAY ==
[2023-02-19 13:25] LABS: COMMENT (LAB VIEW ONLY) 130.65 mg/dL; Microalb ug/mg Crea 19.6 ug/mg Cr
== END 2023-02-19 14:12 | disposition home or self-care (01) ==
LOC: LBN 14:11
PROVIDERS: PCP Nurse Practitioner Family; Visit Provider Nurse Practitioner Family
DX: E11.9 Type 2 diabetes mellitus without complications (principal)
CPT/HCPCS: 82043; 82570

== ENCOUNTER 2023-03-04 01:00 | Outpatient (CLI) | payer BC, SELFPAY ==
--- NOTE | 2023-03-04 11:34 | DI.RAD_ITS ---
Exam(s) XR HIP LT COMPLETE AP PELVIS EXAM: XR HIP LT COMPLETE AP PELVIS INDICATION: chronic left hip pain, M25.552, G89.29. COMPARISON: CR LUMBAR SPINE COMPLETE from 06/08/2014 TECHNIQUE: 2D digital imaging was performed. Three views. FINDINGS: Hip joint spaces are maintained. There is bilateral spurring from the superior acetabula. There is spurring at the greater trochanters. SI joints and pubic symphysis are unremarkable. IMPRESSION: Mild degenerative changes of both hips. DATA REPOSITORY: RADIATION DOSE DELIVERED:
== END 2023-03-04 01:20 ==
LOC: DI 01:00
PROVIDERS: PCP Nurse Practitioner Family; Visit Provider Nurse Practitioner Family
DX: G89.29 Other chronic pain (principal); M25.552 Pain in left hip
CPT/HCPCS: 73502

== ENCOUNTER 2023-03-12 00:17 | Outpatient (CLI) | payer BC, SELFPAY ==
--- NOTE | 2023-03-12 08:15 | DI.MAMMO_ITS ---
Exam(s) MAMMO SCREENING EXAM: MAMMO SCREENING CLINICAL HISTORY: screening,Z12.39. TECHNIQUE: Bilateral full field digital CC and MLO mammographic images were obtained with 3D tomosyn thesis and utilizing computer aided detection (CAD). COMPARISON: Prior mammograms were reviewed. FINDINGS: There has been no significant change in the appearance and distribution of the fibroglandular tissue. There is a small benign-appearing 3 millimeter nodule in the right breast located 3 cm in the nipple which is unchanged from 2013 and therefore benign. There are no new spiculated masses nor malignant appearing microcalcification groups. There is no significant architectural distortion nor skin thickening-retraction. IMPRESSION: No radiographic evidence of malignancy. BI-RADS Category 1 - Negative Breast Density - Category B - Scattered areas of fibroglandular density Breast density Category C or D implies that the patient has dense breast tissue. Dense breast tissue can make it harder to find cancer on a mammogram. Dense breast tissue is also associated with an incr eased risk of breast cancer. This information about the result of the mammogram report was provided to the patient to raise their awareness. Use this report when you speak with the patient about their risks for breast cancer, which includes their family history. At that time, you may recommend additional screening tests (Ultrasoun d or MRI) as these tests may add significant information. A negative radiographic report should not delay biopsy if a dominant or clinically suspicious mass is present. Up to ten percent of cancers are not identified on mammography. A negative report may reinforce clinical impression. Adenosis and dense breasts may obscure an underlying neoplasm. False positive reports average 6 to 10%. Patient will receive a letter notifying them of these results.
== END 2023-03-12 00:37 ==
LOC: DI 00:17
PROVIDERS: PCP Nurse Practitioner Family; Visit Provider Nurse Practitioner Family
DX: Z12.31 Encounter for screening mammogram for malignant neoplasm of breast (principal)
CPT/HCPCS: 77063; 77067

== ENCOUNTER 2023-06-09 04:22 | Outpatient (CLI) | payer BC, SELFPAY ==
[2023-06-09 11:11] LABS: BUN 16 mg/dL (7-18); CREATININE 0.6 mg/dL (0.55-1.02); Calcium 9.2 mg/dL (8.5-10.1); Chloride 103 mmol/L (98-107); Estimated GFR 100.17 (mL/min/1.73m2); Glucose 124 mg/dL (74-106); Potassium 3.7 mmol/L (3.5-5.1); Sodium 139 mmol/L (136-145)
== END 2023-06-09 04:23 | disposition home or self-care (01) ==
PROVIDERS: PCP Nurse Practitioner Family; Visit Provider Nurse Practitioner Family
DX: E11.9 Type 2 diabetes mellitus without complications (principal)
CPT/HCPCS: 36415; 80048

== ENCOUNTER 2023-06-15 13:49 | Outpatient (CLI) | payer BC, SELFPAY ==
[2023-06-15 13:57] VITALS: BP 117/71; PULSE 77; RESP 20; TEMP 36.6; O2SAT 99
--- NOTE | 2023-06-15 14:34 | PDOC.PAIN ---
Date of service: 06/15/23 Time of Service: 14:34 Pain Managment Procedure Note Procedure Note Procedure Note: PROCEDURE NOTE CAUDAL EPIDURAL STEROID INJECTION Date of Service: June 15, 2023 Patient:Eileen Watt? Provider:? Sierra Knight DO, MPH Eileen Simpson has been referred to the Pain Management Center for caudal epidural steroid injection.? Pre-operative diagnosis: Lumbosacral Radiculopathy Post-operative diagnosis: Same Pre-Procedure Pain: VAS= 5/10. COMMENTS: She had >3 months of >50% pain relief with her last caudal AMADEO on 01/19/2023 Ediewas interviewed and the medical record was reviewed.? There were no medical, pharmacologic, radiographic or other structural contraindications to attempting fluoroscopically guided epidural steroid injection.? Risks and expected side effects as well as potential benefit of the procedure were reviewed with Edie, and the patient's voiced concerns were addressed.? The printed consent form was signed.? Standard time-out procedure was performed. Edie was placed in the prone position on the fluoroscopy table and automated blood pressure cuff and pulse oximeter applied.? The skin entry point for entering/approaching the epidural space by a caudal approach through the sacral hiatus ed identified with surgical skin marking.? Following thorough chlorhexidine preparation of the skin and draping and 1% lidocaine infiltration of the skin entry point and subcutaneous tissues, a 17 gauge Touhy needle was placed under fluoroscopic guidance? into the epidural space. Needle tip placement and depth were aided and confirmed by fluoroscopy in the lateral and AP position. There was no paresthesia or return of blood or CSF through the needle. 1 cc of Omnipaque 240 was injected with clear epidural spread confirmed with fluoroscopy. An Arrow 19G radio-opaque epidural catheter was advanced into the epidural space to the L5-S1 level and 2 cc of Omnipaque 240 was injected with clear epidural spread. 80 mg of Depo-Medrol was? injected. There was no unusual discomfort expressed by Eileen. The needle and catheter were then flushed with 1 cc of 1% Lidocaine and they were removed together without difficulty (49 cc of Omnipaque was wasted). Eileen was observed and was without hemodynamic, neurologic, or allergic reactions.? Fluoroscopic images were digitally archived. Eileen's vital signs were stable throughout the procedure and were as recorded in the docflowsheet by the nursing staff.? If given, dosages of intravenous drugs for anxiolysis and analgesia were documented in MAR. Follow up plans and appointments were discussed with Eileen.? Post procedure instruction was given as documented in nursing documentation and having met discharge criteria, Eileen was discharged from the [facility]. ? COMMENTS: No apparent complications.? Post-procedure pain: VAS= 1/10. If the patient receives at least 50% improvement in pain and/or function for at least 3 months, this procedure can be repeated. I personally completed the entire procedure. SIERRA KNIGHT DO, MPH ABPM&R - Subspecialty board certification in Pain Medicine [facility]
--- NOTE | 2023-06-15 14:38 | DI.RAD_ITS ---
Exam(s) XR PAIN CLINIC LUMBAR SP 2V EXAM: XR PAIN CLINIC LUMBAR SP 2V CLINICAL HISTORY: Dx: Lumbar Radiculopathy TECHNIQUE: 2D and realtime digital imaging was performed. CONTRAST MATERIAL: Refer to procedure report. COMPARISON: No exams were available for comparison FINDINGS: Fluoroscopy was provided for Dr. Knight during the performance of a spinal epidural steroid injection. Please refer to the procedure report for complete details. Ka,r=11.3 mGy IMPRESSION:
[2023-06-15 14:43] VITALS: BP 124/66; PULSE 76; RESP 24; O2SAT 97
[2023-06-15] MEDS: Omnipaque 240 MG/ML 50 ML BTL IJ (14:44)
[2023-06-15] MEDS: methylPREDNISolone ACETATE 80 MG/ML VIAL IJ (14:44)
== END 2023-06-15 13:50 | disposition home or self-care (01) ==
LOC: PC 13:49
PROVIDERS: PCP Nurse Practitioner Family; Visit Provider Preventive Medicine Occupational Medicine
DX: M54.17 Radiculopathy, lumbosacral region (principal)
CPT/HCPCS: 62323; 72100; J1040; Q9967

== ENCOUNTER → 2023-09-07 01:41 | Outpatient (CLI) | payer BC, SELFPAY ==
--- NOTE | 2023-09-07 13:35 | DI.MRI_ITS ---
Exam(s) MR LUMBAR SPINE WO EXAM: MR LUMBAR SPINE WO CLINICAL HISTORY: chronic low back pain, s/p l5-s1 discectomy,DJD,RADICULOPATHY,M54.16,M47.81. TECHNIQUE: Multiplanar multisequence MRI of the Lumbar spine was performed. COMPARISON: MR MR LUMBAR SPINE WO from 01/05/2022 XR PAIN [facility]INIC LUMBAR SP 2V from 06/15/2023 FINDINGS: There is a mild scoliosis convex left having epicenter at L3-4 level where there is asymmetric narrow ing of the right-side of the disc space again noted, and this has slightly further progressed when co mpared to MRI scan of December 2021. Conus medullaris is at L1 level. There is no evidence of conus mass nor subjacent clumping of intrat hecal nerve roots to suggest arachnoiditis. The distal thecal sac is of the lower S1 level..There is no evidence of Tarlov intrasacral cysts nor other significant findings within the sacral canal Bones:There are no fractures nor ominous osseous lesions in the lumbar vertebral bodies and visualize d sacrum. No evidence of discitis nor osteomyelitis. With respect to the individual levels... T12-L1: Unremarkable L1-2: Normal disc height and signal. No disc herniation nor central canal stenosis.No foraminal steno sis L2-3: Normal disc height. No disc herniation nor central canal stenosis.No foraminal stenosis.No face t arthropathy. L3-4: This level exhibits disc height loss since 2021, more so on the right than the left side. Ther e is broad annular bulging at this level without a dominant disc herniation although the annular bulg ing does extend into the floor of the exiting right neural foramen, more so than previous. However, there does not appear to be significant foraminal stenosis on the right side at this level and the ex iting left neural foramen remains widely patent. There is mild central spinal canal stenosis at this level, slightly more than previous due to increasing annular bulging at this level. Mild facet arthr opathy at this level, slightly more so on the right side. L4-5: This level exhibits mild anterolisthesis of L4 upon L5, slightly more so than previous and this is related to facet arthropathy. There is severe spinal canal stenosis at this level again noted, s lightly more so than previous. This is due to a combination of the listhesis, short AP dimensions of the pedicles, significant bilateral facet arthropathy. On the present study there is a degenerative synovial cyst now evident off the posterior aspect of the left facet joint at this level, not previo usly present. This degenerative synovial cyst measures 1.3 cm x 1 cm by 1.2 cm. It does not impress the thecal sac. With respect to the exiting neural foramina at this level, there is again no significant foraminal st enosis because the disc height at this level is again noted to be preserved. L5-S1: This level has lost significant disc height when compared to December 2021. The previously pre sent posterolateral left disc herniation at this level is no longer seen.. There is broad annular bu lging at this level again noted, similar to previous but no true central canal stenosis evident. How ever, there is again noted severe foraminal stenosis on the left side with impingement of the exiting left nerve root related to the disc height loss, annular bulging, and degenerative overgrowth of the superior articular process of S1 at the facet joint. There is significant impingement of the exitin g left-sided nerve root by the structures as well as the overlying left L5 pedicle. On the opposite- right side there is no foraminal stenosis at this level. This is due to the fact that there is sligh tly less disc height loss on the right side, less annular bulging into the neural foramen and absence of degenerative beaking of the superior articular process of the right facet joint (as is seen on th e opposite-left side at this level). Soft tissues: paraspinal soft tissues appear unremarkable. IMPRESSION: 1. When compared to the prior MRI scan of December 2021 the previously present posterolateral left di sc herniation at L5-S1 is no longer seen. Although there is no prominent central canal stenosis at t his level, there is again noted severe asymmetric left-sided foraminal stenosis at this level with se amy impingement of the exiting left nerve root at this level (L5-S1). Similar findings are again no t evident in the exiting right neural foramen at this level. 2. There is severe spinal canal stenosis at L4-5 level again noted due to degenerative anterolisthesi s of L4 upon L5, this related to significant bilateral facet arthropathy. There is also a degenerati ve synovial cyst now evident coming off the posterior aspect of the left facet joint at this level, n ot previously present. This measures 13 x 10 x 12 mm. It is external to the spinal canal and theref ore does not compress the sac. Although there is severe spinal canal stenosis at this level again no [place], there is no foraminal narrowing at this level, this again noted to be related to the preserved d isc height on both sides of the disc space at this level. 3. L3-4 level findings as above again evident. DATA REPOSITORY:
== END ==
PROVIDERS: PCP Nurse Practitioner Family; Visit Provider Nurse Practitioner Family
DX: M48.061 Spinal stenosis, lumbar region without neurogenic claudication (principal); M99.63 Osseous and subluxation stenosis of intervertebral foramina of lumbar region
CPT/HCPCS: 72148

== ENCOUNTER 2023-11-03 09:40 | Outpatient (CLI) | payer BC, SELFPAY ==
--- NOTE | 2023-11-03 09:30 | RT.EKG_ITS ---
APPROVED REPORT Exam: Resting ECG Reason for Exam: pre op examination Patient Location: O HR:69 bpm ECG Measurements Heart Rate 69 AXIS FL 183 P 80 QRSd 93 QRS -59 QT 401 T 32 QTc 430 Conclusion Sinus rhythm...normal P axis, V-rate 50- 99 Left anterior fascicular block...axis(240,-40), init forces inf I have reviewed and interpreted ECG and agree with software generated interpretation.
== END 2023-11-03 09:41 | disposition home or self-care (01) ==
LOC: DI.CM 09:41
PROVIDERS: PCP Nurse Practitioner Family; Visit Provider Nurse Practitioner Family
DX: Z01.818 Encounter for other preprocedural examination (principal)
CPT/HCPCS: 93010

== ENCOUNTER 2023-11-03 10:33 | Outpatient (REF) | payer BC, SELFPAY ==
[2023-11-03 12:17] LABS: HCT 40.8 % (36.0-46.0); HGB 13.7 g/dL (11.2-15.7); MCH 32.1 pg (27.0-33.0); MCHC 33.6 % (32.0-36.0); MCV 96 fL (80-95); MPV 10.2 fL (8.0-11.0); Platelet Count 249 10^3/uL (130-400); RBC 4.27 10^6/uL (3.93-5.22); RDW 11.9 % (11.7-14.6); RDW-SD 42.1 fL
[2023-11-03 12:30] LABS: Anion Gap 11.2 mmol/L (3-11); BUN 14 mg/dL (7-18); CO2 25.8 mmol/L (21.0-32.0); CREATININE 0.6 mg/dL (0.55-1.02); Calcium 10.1 mg/dL (8.5-10.1); Chloride 105 mmol/L (98-107); Estimated GFR 100.17 (mL/min/1.73m2); Glucose 99 mg/dL (74-106); Potassium 4.1 mmol/L (3.5-5.1); Sodium 142 mmol/L (136-145)
== END 2023-11-03 10:34 | disposition home or self-care (01) ==
LOC: LBN 10:33
PROVIDERS: PCP Nurse Practitioner Family; Visit Provider Nurse Practitioner Family
DX: E11.9 Type 2 diabetes mellitus without complications (principal); Z79.4 Long term (current) use of insulin
CPT/HCPCS: 80048; 85027; 83036

== ENCOUNTER 2023-12-28 23:11 | Emergency (ER) | payer BC, SELFPAY ==
[2023-12-28 23:16] VITALS: BP 152/90; PULSE 96; RESP 18; TEMP 36.8; O2SAT 98
--- NOTE | 2023-12-28 23:43 | DI.CT_ITS ---
Exam(s) CT LUMBAR SPINE RECONS EXAM: CT LUMBAR SPINE RECONS CLINICAL HISTORY: recent L surgery, fall, now lower lumbar pain on L. TECHNIQUE: Imaging Protocol: Axial computed tomography images with coronal and sagittal reformatted images were created and reviewed COMPARISON: No exams were available for comparison FINDINGS: Bones: There is evidence of prior fusion surgery with posterior fusion rods at L4-5 level secured by bilateral intrapedicular screws at these 2 levels. There is also an intervertebral disc space devic e at L4-5 level which is not retropulsed.. There is no evidence of hardware fracture. No osseous fr actures. No listhesis. No facet malalignment. Disc space narrowing at L3-4 and L5-S1 levels is not ed. Partially visualized sacrum appears intact with no sacral fracture identified in the field of vi ew of this study. There are no transverse process fractures. In the posterior subcutaneous fat there is streaking at the L4-5 level. This is probably scarring re lated to the prior surgery. PARASPINAL SOFT TISSUES: Visualized paraspinal tissues appear unremarkable. IMPRESSION: 1. Intact appearing L4-5 fusion hardware. 2. No lumbar vertebral fractures identified. 3. There is streaking in the subcutaneous fat over the L4-5 level which is probably scarring along th e surgical tract site. RADIATION DOSE DELIVERED: 1,313.46mGy.cm Total DLP DATA REPOSITORY: All CT scans at this facility are submitted to the National Radiology Data Registry (NRDR) Dose Index Registry (DIR) with the [employer] ([employer]). RADIATION OPTIMIZATION: All CT scans at this facility use at least one of these dose optimization te chniques: automated exposure control; mA and/or kV adjustment per patient size (includes targeted exa ms where dose is matched to clinical indication); or iterative reconstruction.
[2023-12-28] MEDS: Lidocaine 5% Patch 1 PATCH TP (23:53)
[2023-12-28] MEDS: diazePAM 5 MG TAB PO (23:53)
[2023-12-28] MEDS: predniSONE 20 MG TAB 60 MG PO (23:54)
[2023-12-29] VITALS (16 sets, daily range): BP systolic 109–171; BP diastolic 53–77; PULSE 80–93; RESP 15–21; TEMP 36.6; O2SAT 90–95
--- NOTE | 2023-12-29 | DI.CT_ITS ---
Exam(s) CT ABDOMEN PELVIS WO EXAM: CT ABDOMEN PELVIS WO CLINICAL HISTORY: Recent lumbar surgery, fall, now L lower back pain. TECHNIQUE: Imaging Protocol: Axial computed tomography images with coronal and sagittal reformatted images were created and reviewed CONTRAST MATERIAL: Intravenous: none Oral: None COMPARISON: CT CT LUMBAR SPINE RECONS from 12/29/2023 FINDINGS: VISUALIZED LUNG BASES: No nodules nor pleural effusions evident. ABDOMEN: There is no ascites. No evidence of bowel wall nor mesenteric hematoma. LIVER: No liver laceration evident nor other significant focal hepatic findings on this non few study GALLBLADDER/BILIARY: Gallbladder is surgically absent. CBD is not dilated. PANCREAS: No evidence of pancreatic mass nor dilatation of the pancreatic duct. SPLEEN: No splenic laceration. Spleen size normal. ADRENALS: There are no significant adrenal masses. KIDNEYS:No renal lacerations evident. No subcapsular hematomas. No solid renal masses. No calculi n or hydronephrosis. . ABDOMINAL AORTA: Unremarkable. No aneurysm. LYMPH NODES: There is no retroperitoneal nor paraaortic adenopathy. ABDOMINAL WALL: There is an anterior abdominal wall midline supraumbilical hernia which contains smal l bowel loops. There is no evidence of bowel obstruction. GI: There is no evidence of bowel obstruction, free air, nor abscess. PELVIS: LYMPH NODES: There is no intrapelvic nor inguinal adenopathy. GI: No evidence of appendicitis.There are few sigmoid diverticuli but no evidence of acute diverticul itis. URINARY BLADDER: No calculi nor obvious masses evident REPRODUCTIVE: Uterus and adnexal regions appear age-appropriate. No free fluid in the pelvis. OSSEOUS: No fractures. No significant osseous lesions. There is fusion surgery hardware at L4-5 lev el. There is no abnormal paraspinal collection but in the posterior subcutaneous fat over the L4 lev el there is a thin fluid collection. This is in addition to some fat streaking in this region. Ther e is no gas within this small midline fluid collection in the subcutaneous fat. IMPRESSION: 1. No evidence of acute trauma findings in the abdomen and pelvis. 2. Sigmoid diverticulosis with no evidence of acute diverticulitis. 3. Lower lumbar spine fusion surgery. Small posterior subcutaneous fluid collection at L4 level with some adjacent subcutaneous fat stranding. This may be along the tract of the prior back surgery and correlation with any clinical signs of abscess at this level is recommended. RADIATION DOSE DELIVERED: 1,313.46mGy.cm Total DLP DATA REPOSITORY: All CT scans at this facility are submitted to the National Radiology Data Registry (NRDR) Dose Index Registry (DIR) with the [employer] ([employer]). RADIATION OPTIMIZATION: All CT scans at this facility use at least one of these dose optimization te chniques: automated exposure control; mA and/or kV adjustment per patient size (includes targeted exa ms where dose is matched to clinical indication); or iterative reconstruction.
--- NOTE | 2023-12-29 01:16 | DI.VRAD_ITS ---
PROCEDURE INFORMATION: Exam: CT Abdomen And Pelvis Without Contrast Exam date and time: 12/29/2023 12:02 AM Age: 63 years old Clinical indication: Other: Low back; Prior surgery; Surgery date: <1 month; Surgery type: Back surgery, cholecystectomy, tubal ligation, diskectomy; Patient HX: Recent lumbar surgery, fall, now L lower back pain TECHNIQUE: Imaging protocol: Computed tomography of the abdomen and pelvis without contrast. Radiation optimization: All CT scans at this facility use at least one of these dose optimization techniques: automated exposure control; mA and/or kV adjustment per patient size (includes targeted exams where dose is matched to clinical indication); or iterative reconstruction. COMPARISON: CR XR HIP LT COMPLETE AP PELVIS 03/04/2023 2:22 PM FINDINGS: Lungs: Mild scarring in bilateral lung bases. No infiltrates. Liver: Normal. No mass. Gallbladder and bile ducts: Cholecystectomy. No fluid in gallbladder fossa. Pancreas: Normal. No ductal dilation. Spleen: Normal. No splenomegaly. Adrenal glands: Normal. No mass. Kidneys and ureters: Normal. No hydronephrosis. Stomach and bowel: Scattered colonic diverticulosis. No areas of wall thickening in the large bowel. No evidence of large bowel obstruction. No pericolonic inflammatory changes to suggest acute diverticulitis. No wall thickening in the small bowel. No evidence of small bowel obstruction. Appendix: No evidence of appendicitis. Intraperitoneal space: Unremarkable. No free air. No significant fluid collection. Vasculature: Unremarkable. No abdominal aortic aneurysm. Lymph nodes: Unremarkable. No enlarged lymph nodes. Urinary bladder: Unremarkable as visualized. Reproductive: Unremarkable as visualized. Bones/joints: Surgical changes from posterior fusion of L4-L5 vertebral levels with intrapedicular screws and interlocking rods in place. Disc spacer seen at L4-L5 level. No evidence of fracture. Soft tissues: Midline posterior back subcutaneous fluid collection is seen at L3-L4 level is seen on sagittal series 6, image 78 and axial series 4, image 450 measuring 1.9 x 1.3 cm in axial dimension and 3.2 cm in craniocaudal dimension. Adjacent haziness and stranding of fat is seen. IMPRESSION: 1. No evidence of intraperitoneal pathology. 2. 1.9 x 1.3 x 3.2 cm midline posterior back subcutaneous fluid collection at L4 level with adjacent haziness and stranding of fat. Small postsurgical abscess correlation with cellulitis should be considered. Please correlate with physical exam. 3. Scattered colonic diverticulosis. Dictated and Authenticated by: Augusto Mirza MD. Ordering:ISHAN Marroquin MD
--- NOTE | 2023-12-29 01:20 | DI.VRAD_ITS ---
PROCEDURE INFORMATION: Exam: CT Lumbar Spine Without Contrast Exam date and time: 12/29/2023 12:02 AM Age: 63 years old Clinical indication: Low back pain; Prior surgery; Surgery date: <1 month; Surgery type: Back surgery last month; Patient HX: Recent L surgery, fall, now lower lumbar pain on L TECHNIQUE: Imaging protocol: Computed tomography of the lumbar spine without contrast. Radiation optimization: All CT scans at this facility use at least one of these dose optimization techniques: automated exposure control; mA and/or kV adjustment per patient size (includes targeted exams where dose is matched to clinical indication); or iterative reconstruction. COMPARISON: MR LUMBAR SPINE WO 09/07/2023 1:16 PM FINDINGS: Bones/joints: No evidence of fracture. L1-L2: No significant disc bulge or herniation. No severe spinal canal stenosis. No significant neural foraminal narrowing. L2-L3: No significant disc bulge or herniation. No severe spinal canal stenosis. No significant neural foraminal narrowing. L3-L4: Degenerative disc disease with loss of disc height and small amount of gas within the disc space likely degenerative.Mild degenerative disc disease with small osteophytosis measuring approximately 3 mm. No evidence of disc protrusion or extrusion. Mild canal stenosis. L4-L5: Surgical changes from posterior fusion of L4-L5 level with intrapedicular screws and interlocking rods in place. Disc spacers in place. Evaluation of the canal space is very limited at this level secondary to streak artifact from surgical hardware. L5-S1: No significant disc bulge or herniation. No severe spinal canal stenosis. No significant neural foraminal narrowing. Soft tissues: Midline posterior back subcutaneous fluid collection is seen at L3-L4 level is seen on sagittal series 6, image 78 and axial series 4, image 450 measuring 1.9 x 1.3 cm in axial dimension and 3.2 cm in craniocaudal dimension. Adjacent haziness and stranding of fat is seen. IMPRESSION: 1.9 x 1.3 x 3.2 cm midline posterior back subcutaneous fluid collection at L4 level with adjacent haziness and stranding of fat. Small postsurgical abscess correlation with cellulitis should be considered. Please correlate with physical exam. Dictated and Authenticated by: Augusto Mirza MD. Ordering:ISHAN Marroquin MD
[2023-12-29 01:36] LABS: Lactate 1.5 mmol/L (0.6-1.4)
[2023-12-29 01:39] LABS: Abs Immature Grans 0.03 10^3/uL (0.0-0.06); Absolute Basophil Count 0.04 10^3/uL (0.0-0.2); Absolute Lymphocyte Count 2.11 10^3/uL (1.2-3.4); Absolute Monocyte Count 0.62 10^3/uL (0.1-0.8); Absolute Neutrophil Count 6.61 10^3/uL (1.2-6.7); Basophils % 0.4; Eosinophils % 1.1; HCT 38.2 % (36.0-46.0); HGB 12.8 g/dL (11.2-15.7); Immature Grans % 0.3; Lymphocytes % 22.2; MCH 31.2 pg (27.0-33.0); MCHC 33.5 % (32.0-36.0); MCV 93 fL (80-95); MPV 9.5 fL (8.0-11.0); Monocytes % 6.5; Neutrophils % 69.5; Platelet Count 273 10^3/uL (130-400); RDW 11.5 % (11.7-14.6); RDW-SD 39.2 fL; WBC 9.51 10^3/uL (4.4-10.8)
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
[2023-12-29 01:40] LABS: ESR 25 mm/hr (0-30)
[2023-12-29] MEDS: MORPHine 4 MG/ML SYR IVP ×2 (01:49→05:23)
[2023-12-29 02:01] LABS: ALT 18 U/L (14-59); AST 11 U/L (15-37); Albumin 3.4 g/dL (3.4-5.0); Alkaline Phosphatase 69 U/L (46-116); Anion Gap 9.2 mmol/L (3-11); BUN 22 mg/dL (7-18); Bilirubin, Total 0.4 mg/dL (0.2-1.0); C-Reactive Protein 0.73 mg/dL (<or=0.5); CO2 27.8 mmol/L (21.0-32.0); CREATININE 0.6 mg/dL (0.55-1.02); Calcium 9.5 mg/dL (8.5-10.1); Chloride 104 mmol/L (98-107); Estimated GFR 100.17 (mL/min/1.73m2); Glucose 158 mg/dL (74-106); Potassium 4.2 mmol/L (3.5-5.1); Sodium 141 mmol/L (136-145); Total Protein 7.3 g/dL (6.4-8.2)
[2023-12-29 02:09] LABS: Procalcitonin < 0.1 ng/mL
--- NOTE | 2023-12-29 03:02 | DI.MRI_ITS ---
Exam(s) MR LUMBAR SPINE WO/W EXAM: MR LUMBAR SPINE WO/W CLINICAL HISTORY: severe back pain,back surgery 1 mo ago,fluid collection L 4,? spinal absces. TECHNIQUE: Multiplanar multisequence MRI of the Lumbar spine was performed. With non fused infused s equences were performed. Contrast injected was IV Dotarem 20 mL COMPARISON: MR MR LUMBAR SPINE WO from 01/05/2022 MR MR LUMBAR SPINE WO from 09/07/2023 FINDINGS: There has been interval fusion surgery since the prior MRI scan of 09/07/2023 with placement of poste rior fusion rods at L4-5 and bilateral intrapedicular screws at L4 and L5 levels. In the posterior subcutaneous fat over this area there is some increased signal and a thin fluid venecia ection which measures 2.5 cm craniocaudal by 2.5 cm AP by 1 cm wide. This thin midline fluid collecti on extends from the subdermal region to the level of the deep fascia but does not appear to extend in to the spinal canal Conus medullaris is at normal level. There is no evidence of conus mass nor subjacent clumping of in trathecal nerve roots to suggest arachnoiditis. The distal thecal sac appears unremarkable.There is no evidence of Tarlov intrasacral cysts nor other significant findings within the sacral canal Bones:There are no fractures nor ominous osseous lesions in the lumbar vertebral bodies and visualize d sacrum. With respect to the individual levels... T12-L1: Unremarkable L1-2: Normal disc height and signal. No disc herniation nor central canal stenosis.No foraminal steno sis L2-3: Normal disc height. No disc herniation nor central canal stenosis.No foraminal stenosis.No face t arthropathy. L3-4: This is 1 level above the fusion. There is mild disc space narrowing. There is broad annular bu lging with a superimposed right paracentral disc protrusionwhich extends posteriorly 2 mm and is 1 cm wide. There is moderate central spinal canal stenosis at this level which is due to the annular bulg ing and developmental short AP dimensions of the pedicles. There is no prominent facet arthropathy at this level. There is no significant spinal canal stenosis on either side. L4-5: The disc space height is maintained by a device which is not retropulsed into the canal. There has been removal of posterior osseous elements. Posterior fusion rods noted as well as intrapedicular screws both sides. There is no longer an element of anterolisthesis of L4 upon L5, as was present pr eoperatively. There is significant improvement in the dimensions of the central canal at this time. C anal dimensions are lower normal at this time. There are Modic type 1 sub endplate marrow edema rodriguez es. No obvious evidence of osteomyelitis. No obvious epidural fluid collection seen. Central canal di mensions at this level are normal. There is no foraminal stenosis on the right side. There is mild fo raminal stenosis on the left side. L5-S1: This is 1 level below the fusion. There is disc space narrowing at this level again noted. The re is broad annular bulging at this level again noted. Mild central canal stenosis. There is no amelie inal stenosis on the right side but there is significant foraminal stenosis on the left side again no whitley. This is related to more prominent disc height loss on the left side of the disc space than on th e right side. There is again noted significant impingement of the exiting left side nerve root at thi s level between the annular bulging and the overlying L5 pedicle. Mild facet arthropathy noted. Soft tissues: See above IMPRESSION: 1. Compared to prior MRI scan of August there has been interval surgery with fusion andre dware now evident at L4-5 level comprised of posterior fusion wendy secured by bilateral intrapedicular screws at L4 and L5. the previously present significant central spinal canal stenosis at L4-5 level has significantly improved. There is, however, still central canal stenosis (moderate) at L3-4 level which is 1 level above the fusion. This appears unchanged from previous. 2. At L5-S1 level there is again noted left-sided foraminal stenosis which is again noted be related to more prominent asymmetric narrowing of the left side of the disc space. This results in impingemen t of the exiting nerve roots between the annular bulging in the overlying L5 left pedicle. 3. Posterior midline subcutaneous fluid collection as described above most probably postsurgical. Pro bably seroma although there is some mild streaking in the surrounding fat and correlation with any cl inical findings to suggest subcutaneous abscess is recommended. This thin midline fluid collection ap pears to be confined to the subcutaneous fat layer. Called by myself to ER physician. DATA REPOSITORY:
[2023-12-29 07:00] LABS: Bilirubin Negative (Negative); Blood Negative (Negative); Clarity Clear (Clear); Glucose >=1000 mg/dL (Negative); Ketones Negative (Negative); Leukocyte Esterase Negative (Negative); Nitrite Positive (Negative); Specific Gravity 1.015 (1.005-1.025); Urobilinogen 0.2 mg/dL (Up to 0.2); pH 5.5 (5-8)
[2023-12-29 07:10] LABS: Bacteria Moderate HPF (Negative); C & S Indicated? Yes; Casts Negative LPF (Negative); Crystals Negative HPF (Negative); Epithelial Cells Few HPF (Negative); Mucus Negative (Negative); RBC Negative HPF (0-2)
[2023-12-29] MEDS: cefTRIAXone 2 GM/50 ML BAG IVPB (07:30)
--- NOTE | 2023-12-29 08:21 | W.EDPROG ---
Date of service: 12/29/23 Time of Service: 08:21 Medical Decision Making pt pending mri w/wo to further delineate what the fluid collection seen on the CT is. ua positive for nitrites and has moderate bacteria, will order ceftriaxone. She is stable and feels better, understands reasoning for MRI. Will continue to observe pt stable, MRI shows likely seroma, has no signs of infection at her surgical site, no erythema or warmth. Discussed results with Cosme AYOUB for neurosurgery at [facility], given reassuring labs and no outward signs of infection do not feel acute intervention indicated or needed. Pt stable, ambulating at baseline, eating and drinking without issues. Stable for d/c, will f/u with her neurosurgeons and return precautions given Imaging Data Radiologic Study: Attestation: I personally reviewed and interpreted this imaging study as follows: Imaging: MRI Radiologist's impression: IMPRESSION: 1. Compared to prior MRI scan of August there has been interval surgery with fusion hardware now evident at L4-5 level comprised of posterior fusion wendy secured by bilateral intrapedicular screws at L4 and L5. the previously present significant central spinal canal stenosis at L4-5 level has significantly improved. There is, however, still central canal stenosis (moderate) at L3-4 level which is 1 level above the fusion. This appears unchanged from previous. 2. At L5-S1 level there is again noted left-sided foraminal stenosis which is again noted be related to more prominent asymmetric narrowing of the left side of the disc space. This results in impingement of the exiting nerve roots between the annular bulging in the overlying L5 left pedicle. 3. Posterior midline subcutaneous fluid collection as described above most probably postsurgical. Probably seroma although there is some mild streaking in the surrounding fat and correlation with any clinical findings to suggest subcutaneous abscess is recommended. This thin midline fluid collection appears to be confined to the subcutaneous fat layer. Quality:SDOH Health Related Social Needs: No Data to Display Sign Out Sign Out Data: Sign Out Comment: Back pain, spinal surgery 1 month ago. Now has 2 x 1 x 3 cm fluid collection around L4. Pending MRI in the morning. Please contact [facility] neurosurgical PA Cosme Marques at [phone] Last updated by Lopez Amezquita DO at 12/29/23 03:41 Discharge Plan Disposition Patient Disposition: Home Condition: Stable Discharge Details Clinical Impression: Back pain, Lumbar surgical wound fluid collection Primary Care Provider: Vee Norman ED Provider: Darell Ulloa Home Meds and New Rx's Prescriptions: New prednisone 20 mg tablet 60 mg PO DAILY 4 Days Qty: 12 0RF cephalexin 500 mg tablet 500 mg PO QID Qty: 28 0RF Continued acetaminophen [Tylenol Arthritis Pain] 650 mg tablet extended release 1,300 mg PO Q12H melatonin 10 mg capsule 10 mg PO HS PRN albuterol sulfate 90 mcg/actuation HFA aerosol inhaler 2 puff Inhalation Q6H PRN (Reason: shortness of breath or wheezing) Qty: 8.5 4RF Trulicity 0.75 mg/0.5 mL pen injector 0.75 mg subcut QWEEK Qty: 6 3RF cetirizine [Zyrtec] 10 mg tablet 10 mg PO DAILY Qty: 90 3RF metformin 1,000 mg tablet 1,000 mg PO BID Qty: 180 3RF (DME) Dexcom G7 Mechanic Senior Misc See Rx Instructions .Route Qty: 1 3RF Rx Instructions: Continuous glucose monitor montelukast [Singulair] 10 mg tablet 10 mg PO DAILY Qty: 90 3RF lovastatin 40 mg tablet 40 mg PO HS Qty: 90 3RF diclofenac sodium [Arthritis Pain (diclofenac)] 1 % gel 2 g topical QID Qty: 100 3RF Rx Instructions: apply to single elbow, wrist or hand; for hand includes palm/fingers/back of hand citalopram [Celexa] 20 mg tablet 20 mg PO DAILY Qty: 90 3RF Jardiance 25 mg tablet 25 mg PO DAILY Qty: 90 3RF Rx Instructions: Take 1 tablet daily (DME) Dexcom G7 Sensor Device See Rx Instructions .Route Qty: 3 3RF Rx Instructions: Continuous glucose monitor insulin degludec [Tresiba FlexTouch U-100] 100 unit/mL (3 mL) insulin pen 22 unit subcut QHS Qty: 15 4RF (DME) pen needle, diabetic [BD Margo 2nd Gen Pen Needle] 32 gauge x 5/32 needle See Rx Instructions .ROUTE .COMPLEX Qty: 100 3RF Dose Instruction: USE WITH INSULIN PEN TWO TIMES A DAY Rx Instructions: USE WITH INSULIN PEN TWO TIMES A DAY cyclobenzaprine 5 mg tablet 5 - 10 mg PO TID PRN (Reason: muscle spasm) Qty: 90 1RF Rx Instructions: Take 1-2 tablet by mouth three times a day as needed for back pain Discharge Instructions Additional Instructions: your mri showed improved stenosis from your surgery and a seroma which is a common fluid collection after surgery follow up with your neurosurgeon, they should be contacting you today if you feel more ill, develop severe worsening pain or fevers return to the emergency department
[2023-12-29] MEDS: Normal Saline Flush 10 ML SYR IVP (09:30)
[2023-12-29] MEDS: Gadoterate meglumine 20 ML SYRINGE IVP (09:31)
== END 2023-12-29 12:29 | disposition home or self-care (01) ==
PROVIDERS: Student in an Organized Health Care Education/Training Program; Emergency Provider Emergency Medicine; PCP Nurse Practitioner Family
DX: M96.842 Postprocedural seroma of a musculoskeletal structure following a musculoskeletal system procedure (principal); E11.9 Type 2 diabetes mellitus without complications; E78.00 Pure hypercholesterolemia, unspecified; Z98.1 Arthrodesis status; Z79.84 Long term (current) use of oral hypoglycemic drugs; Z79.4 Long term (current) use of insulin
CPT/HCPCS: 00123; 36415; 72158; 80053; 84145; 85652; 87040; 87077; 96374; 99285; 74176; 81003; 81015; 83605; 85025; 86140; 87086; 87186; 99284; J0696; J2270; J7512

== ENCOUNTER → 2024-05-11 00:28 | Outpatient (CLI) | payer MEDICARE, BC, SELFPAY ==
--- NOTE | 2024-05-11 08:00 | DI.MAMMO_ITS ---
Exam(s) MAMMO SCREENING EXAM: MAMMO SCREENING CLINICAL HISTORY: screening, Z12.39 TECHNIQUE: Mammograms were interpreted according to the usual protocol including computer analysis w [employer] CAD system, tomosynthesis and C-view imaging. COMPARISON: 2015 through 2022 FINDINGS: The breasts are composed of scattered fibroglandular densities, Breast Density category B. No suspicious masses or suspicious microcalcifications are seen. No skin thickening or abnormal axillary lymph nodes are seen. There has been no significant change from prior exams. IMPRESSION: BI-RADS Category 1, Negative mammogram Yearly screening mammography is recommended. Breast Density - Category B, scattered fibroglandular densities. A negative radiographic report should not delay biopsy if a dominant or clinically suspicious mass is present. Up to ten percent of cancers are not identified on mammography. A negative report may reinforce clinical impression. Adenosis and dense breasts may obscure an underlying neoplasm. False positive reports average 6 to 10%. Patient will receive a letter notifying them of these results.
== END ==
PROVIDERS: PCP Nurse Practitioner Family; Visit Provider Nurse Practitioner Family
DX: Z12.31 Encounter for screening mammogram for malignant neoplasm of breast (principal)
CPT/HCPCS: 77063; 77067

== ENCOUNTER 2024-05-31 15:20 | Outpatient (CLI) | payer MEDICARE, BC, SELFPAY ==
[2024-05-31 15:16] LABS: Hemoglobin A1C 6.6 % (<5.7)
[2024-06-01 09:50] LABS: HIV-1/2 Ag & Ab Screen Negative (Negative)
[2024-06-01 10:28] LABS: Hepatitis C Ab w Rflx HCV PCR Negative (Negative)
[2024-06-01 10:43] LABS: HBs Antibody, Quant <3.1 mIU/mL (See Note); Hep B Surface Ab Negative (See Note); Hepatitis B Core Antibody Negative (Negative); Hepatitis B Surface Antigen Negative (Negative)
== END 2024-05-31 15:21 | disposition home or self-care (01) ==
LOC: LBO 15:20
PROVIDERS: PCP Nurse Practitioner Family; Visit Provider Nurse Practitioner Family
DX: Z11.4 Encounter for screening for human immunodeficiency virus [HIV] (principal); Z11.59 Encounter for screening for other viral diseases; E11.9 Type 2 diabetes mellitus without complications; Z79.4 Long term (current) use of insulin
CPT/HCPCS: 36415; 86704; 86706; 86803; 87340; 87389; 83036

== ENCOUNTER 2024-09-28 02:54 | Outpatient (CLI) | payer MEDICARE, BC, SELFPAY ==
--- NOTE | 2024-09-28 12:30 | DI.US_ITS ---
APPROVED REPORT EXAM: Comprehensive 2D, Doppler, and color-flow Echocardiogram Patient Location: Out-Patient Check Writing Machine Operator: iLen Johnson RDCS (AE) Indications: Cardiac murmur, mitral regurgitation Other Information Study Quality: Adequate Conclusion Normal left ventricular wall thickness and chamber size. Ejection fraction is 60%. Wall motion is n ormal Normal right ventricular size and function Both atria are normal in size Aortic valve is mildly sclerotic and trileaflet with trace regurgitation Normal mitral valve, trace regurgitation Wall motion Left Ventricle The left ventricle is normal size. The left ventricular systolic function is normal. The left ventric ular ejection fraction is within the normal range. There is normal left ventricular wall thickness. T here is normal LV segmental wall motion. There is no ventricular septal defect visualized. LVEF is 60 %. Right Ventricle The right ventricle is normal size. The right ventricular systolic function is normal. Atria The left atrium size is normal. The right atrium size is normal. The interatrial septum is intact wit h no evidence for an atrial septal defect. Aortic Valve The aortic valve is mildly sclerotic Aortic valve is trileaflet. There is no aortic valvular stenosis . Trace aortic regurgitation. Mitral Valve The mitral valve is normal in structure. No evidence of mitral valve stenosis. Trace mitral regurgita tion. Tricuspid Valve The tricuspid valve is normal in structure. There is no tricuspid valve stenosis. Trace tricuspid reg urgitation. Unable to assess PA pressure. Pulmonic Valve The pulmonary valve is normal in structure. There is no pulmonic valvular stenosis. Trace to mild pul hamilton regurgitation. Great Vessels The aortic root is normal in size. The ascending aorta is normal Aortic arch is not well visualized. IVC is normal in size and collapses >50% with inspiration. Pericardium There is no pericardial effusion. 2D Dimensions IVSD d PLAX 0.94 cm F: 0.6-1.0 Ao Root d 3.14 cm F: 2.7 - 3.3 LVPW d PLAX 0.93 cm F: 0.6 - 1.0 Ao Asc Diam d 3.29 cm F: 2.3 - 3.1 LVID d PLAX 4.24 cm F: 3.8 - 5.2 LVDs 2.87 cm F: 2.2 - 3.5 LV EF Teichholz 60.9 % FS 32.32 % LV EDV (Teich) 80.3 mL LV ESV (Teich) 31.4 mL M-Mode TAPSE 2.41 cm (M/F) >1.7 Auto EF LV EDV A4C 115.1 mL LV EDV A2C 108.0 mL LV EDV BP 110.8 mL LV ESV A4C 46.6 mL LV ESV A2C 44.1 mL LV ESV BP 45.1 mL LVEF(%) A4C 59.5 % LVEF(%) A2C 59.1 % LVEF(%) BP 59.3 % LV SV A4C 68.5 ml LV SV A2C 63.9 ml LV SV BP 65.7 ml LV CO A4C 5.2 L/min LV CO A2C 4.8 L/min LV CO BP 5.0 L/min HR A4C 75.44 BPM HR A2C 74.69 BPM LV EDV Index (BP) LA Volume LA Length A4C 5.0 cm LA Length A2C 5.4 cm LA Area A4C s 15.97 cm2 LA Area A2C s 17.90 cm2 LA Vol A4C A-L 43.14 mL LA Vol A2C A-L 50.11 mL LA Vol Biplane A-L 48.3 mL LA Vol/BSA A4C A-L LA Vol/BSA A2C A-L LA Vol/BSA BP A-L 25.0 mL/m2 LA Vol A4C MOD 40.5 mL LA Vol A2C MOD 46.8 mL LA Vol BP MOD 45.1 mL RA Volume RA Area A4C 9.9 cm2 RA ESV A4C (A-L) 20.0mL RA Vol/BSA A4C A-L RA Length A4C 4.2 cm RA ESV A4C (MOD) 19.2mL LV Diastology MV E' medial 0.067 (>0.07 m/s) MV E Vmax 1.24 (0.4-1.3 m/s) MV E/E' MED 18.71 (<14) MV A Vmax 1.40 (0.4-1.3 m/s) MV E' lateral 0.067 (>0.1 m/s) E/A Ratio 0.9 MV E/E' LAT 18.71 (<14) MV E' Average 0.067 m/s MV E/E'(average) 18.71 Aortic Valve AoV Vmax 1.91 m/s LVOT Vmax 1.34 m/s AoV Peak Grad 37.2 mmHg LVOT Peak Grad 7.2 mmHg AoV Area (Vmax) 2.18 cm2 LVOT VTI 0.306 m AoV VTI 0.434 m LVOT Mean Grad 3.8 mmHg AoV Mean Dave. 1.30 m/s LVOT SV 95.21 mL AoV Mean Grad 7.7 mmHg LVOT Diam s 1.95 cm AoV Area (VTI) 2.19 cm2 AV Regurg Peak Gr. 14.66 mmHg Velocity Ratio 0.70 AR Decel [place] 1.8m/sec2 AR DT 2196 msec AR PHT 637 msec AR Vmax 3.86 m/s Mitral Valve MV DT 229 (160-240 msec) MV Vmax TIPS 1.37 m/s MV Mean Grad 3.9 (<2mmHg) MV VTI 0.441 m Pulmonary Valve PV Vmax 1.05 (0.5-1.5 m/s) RVOT Vmax 0.94 m/s PV Peak Grad 4.4 mmHg RVOT Peak Gr. 3.5 mmHg PV Mean Dave 0.81 m/s RVOT VTI 0.246 m PV Mean Grad 2.9 mmHg RVOT Mean Gr. 2.3 mmHg Tricuspid Valve RA Pressure 3.00 mmHg TV S' 0.15 m/s
== END 2024-09-28 03:14 ==
LOC: DI 02:54
PROVIDERS: PCP Nurse Practitioner Family; Visit Provider Nurse Practitioner Family
DX: I34.0 Nonrheumatic mitral (valve) insufficiency (principal)
CPT/HCPCS: 93306

== ENCOUNTER 2024-09-28 03:35 | Outpatient (CLI) | payer MEDICARE, BC, SELFPAY ==
[2024-09-28 15:47] LABS: Anion Gap 8.2 mmol/L (3-11); BUN 14 mg/dL (7-18); CO2 29.8 mmol/L (21.0-32.0); CREATININE 0.7 mg/dL (0.55-1.02); Calcium 9.8 mg/dL (8.5-10.1); Calculated LDL 59 mg/dL (<100); Chloride 108 mmol/L (98-107); Cholesterol 155 mg/dL (<200); Estimated GFR 95.92 (mL/min/1.73m2); Glucose 133 mg/dL (74-106); HDL Cholesterol 52 mg/dL (40-60); Potassium 3.9 mmol/L (3.5-5.1); Sodium 146 mmol/L (136-145); TSH (W/Ref FT4) 0.94 uIU/mL (0.36-3.74); Triglyceride 221 mg/dL (<150)
== END 2024-09-28 03:36 | disposition home or self-care (01) ==
PROVIDERS: PCP Nurse Practitioner Family; Visit Provider Nurse Practitioner Family
DX: Z79.4 Long term (current) use of insulin (principal); E11.9 Type 2 diabetes mellitus without complications; Z00.00 Encounter for general adult medical examination without abnormal findings; M15.9 Polyosteoarthritis, unspecified; F32.9 Major depressive disorder, single episode, unspecified; E78.5 Hyperlipidemia, unspecified
CPT/HCPCS: 36415; 80048; 80061; 93306; 84443

== ENCOUNTER 2024-10-12 02:26 | Outpatient (CLI) | payer MEDICARE, BC, SELFPAY ==
--- NOTE | 2024-10-12 07:15 | DI.DEXA_ITS ---
Exam(s) XR DEXA BONE DENSITY W/WO VINNY EXAM: XR DEXA BONE DENSITY W/WO VINNY CLINICAL HISTORY: screening for osteoporosis in postmenopausal status,z78.0 TECHNIQUE: [employer] Horizon C densitometer analysis of left hip, lumbar spine and left forearm. Lat eral survey image of the thoracic and lumbar spine. COMPARISON: No exams were available for comparison FINDINGS: Lateral view of the thoracic and lumbar spine shows no evidence of compression fractures. Bone mineral density measurements of the lumbar spine correspond to a total T-score of 0.4, in the n ormal range. L4 was excluded due to presence of hardware. Bone mineral density measurements of the left hip correspond to a total T-score of 0.3. The femoral neck T-score is 0.1, in the normal range.. Theleft forearm bone mineral density measurements correspond to a T-score of the distal 3rd of -0.4, in the normal range.. IMPRESSION: Normal bone mineral density.
== END 2024-10-12 02:46 ==
LOC: DI 02:26
PROVIDERS: PCP Nurse Practitioner Family; Visit Provider Nurse Practitioner Family
DX: Z78.0 Asymptomatic menopausal state (principal); Z13.820 Encounter for screening for osteoporosis
CPT/HCPCS: 77080

== ENCOUNTER 2024-11-27 03:02 | Outpatient (CLI) | payer MEDICARE, BC, SELFPAY ==
--- NOTE | 2024-11-27 | DI.RAD_ITS ---
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 TECHNIQUE: 2D digital imaging was performed. COMPARISON: MR MR LUMBAR SPINE WO/W from 12/29/2023 CR XR DEXA BONE DENSITY W/WO VINNY from 10/12/2024 FINDINGS: Two lateral views-flexion/extension. Again noted is posterior by level fusion hardware at L4-5 level supported by bilateral intrapedicular screws at L4 and L5 levels. There is also an intervertebral disc space divide ower which appears to be in satisfactory position. Flexion extension views do not reveal slippage at this level nor at the levels above nor below. Ther e is disc space narrowing at one level above (L3-4) and one level below (L5-S1) effusion. IMPRESSION: As above. Please note that MRI scan of 12/29/2023 revealed broad annular bulging at L5-S1 with mild central canal stenosis and left-sided foraminal stenosis at this level. There was significant imping ement of the exiting left nerve root at L5-S1 between the overlying left L5 pedicle and the bulging a nnulus extending into the exiting left neural foramen. Similar finding was not evident at the level of the exiting right neural foramen at this level. DATA REPOSITORY: RADIATION DOSE DELIVERED:
== END 2024-11-27 03:22 ==
LOC: DI 03:02
PROVIDERS: PCP Nurse Practitioner Family; Visit Provider Physician Assistant Medical
DX: M43.16 Spondylolisthesis, lumbar region (principal); Z98.1 Arthrodesis status
CPT/HCPCS: 72120

== ENCOUNTER 2025-06-25 14:34 | Outpatient (CLI) | payer MEDICARE, BC, SELFPAY ==
--- NOTE | 2025-06-25 14:48 | DI.RAD_ITS ---
Exam(s) XR KNEE RT 4V AP,LAT,HERMELINDA,PAT EXAM: XR KNEE RT 4V AP,LAT,HERMELINDA,PAT CLINICAL HISTORY: eval R knee pain. TECHNIQUE: 2D digital imaging was performed of the right knee. Four views obtained. Merchant, AP, lateral and PA tunnel views were obtained. COMPARISON: CR XR KNEE RT 3V AP,LAT,HERMELINDA from 01/15/2021 FINDINGS: BONES: No acute fracture is present. No bony destructive lesion is seen. JOINTS: There is moderate narrowing in the medial femoral tibial joint. There is marked narrowing of the patellofemoral joint. There osteophytes seen in all 3 joint compartments. No joint effusion is seen. SOFT TISSUE: Normal. IMPRESSION: Marked osteoarthritis of the right knee. DATA REPOSITORY: RADIATION DOSE DELIVERED:
== END 2025-06-25 14:35 | disposition home or self-care (01) ==
LOC: DIORS 14:34
PROVIDERS: PCP Nurse Practitioner Family; Referring Provider Nurse Practitioner Family; Visit Provider Student in an Organized Health Care Education/Training Program
DX: M17.11 Unilateral primary osteoarthritis, right knee (principal); Z98.890 Other specified postprocedural states
CPT/HCPCS: 20610; J1010; 73564

== ENCOUNTER → 2025-10-08 01:39 | Outpatient (CLI) | payer MEDICARE, BC, SELFPAY ==
--- NOTE | 2025-10-08 08:15 | DI.MAMMO_ITS ---
Exam(s) MAMMO SCREENING EXAM: MAMMO SCREENING CLINICAL HISTORY: screening,z12.39 TECHNIQUE: Mammograms were interpreted according to the usual protocol including computer analysis with CAD system, tomosynthesis and C-view imaging. COMPARISON: 2015 through 2023 FINDINGS: The breasts are composed of scattered fibroglandular densities, Breast Density category B. No suspicious masses or suspicious microcalcifications are seen. No skin thickening or abnormal axillary lymph nodes are seen. There has been no significant change from prior exams. IMPRESSION: BI-RADS Category 1, Negative mammogram Yearly screening mammography is recommended. Breast Density - Category B - There are scattered areas of fibroglandular density. Breast density Category C or D implies that the patient has dense breast tissue. Dense breast tissue can make it harder to find cancer on a mammogram. Dense breast tissue is also associated with an increased risk of breast cancer. This information about the result of the mammogram report was provided to the patient to raise their awareness. Use this report when you speak with the patient about their risks for breast cancer, which includes their family history. At that time, you may recommend additional screening tests (Ultrasound or MRI) as these tests may add significant information. A negative radiographic report should not delay biopsy if a dominant or clinically suspicious mass is present. Up to ten percent of cancers are not identified on mammography. A negative report may reinforce clinical impression. Adenosis and dense breasts may obscure an underlying neoplasm. False positive reports average 6 to 10%. Patient will receive a letter notifying them of these results.
== END ==
PROVIDERS: PCP Nurse Practitioner Family; Visit Provider Nurse Practitioner Family
DX: Z12.31 Encounter for screening mammogram for malignant neoplasm of breast (principal); R92.323 Mammographic fibroglandular density, bilateral breasts
CPT/HCPCS: 77063; 77067

== ENCOUNTER 2025-11-16 09:38 | Outpatient (CLI) | payer MEDICARE, BC, SELFPAY ==
[2025-11-16 16:41] LABS: Anion Gap 8.5 mmol/L (3-11); BUN 15 mg/dL (9-23); CO2 28.5 mmol/L (20.0-31.0); Calcium 9.9 mg/dL (8.3-10.6); Chloride 106 mmol/L (98-107); Glucose 74 mg/dL (74-106); Potassium 4.0 mmol/L (3.5-5.1); Sodium 143 mmol/L (136-145)
== END 2025-11-16 09:39 | disposition home or self-care (01) ==
PROVIDERS: PCP Nurse Practitioner Family; Visit Provider Nurse Practitioner Family
DX: Z79.4 Long term (current) use of insulin (principal); E11.9 Type 2 diabetes mellitus without complications
CPT/HCPCS: 36415; 80048; 83036